=== PATIENT | female | born 1965 | race Caucasian/White ===

== ENCOUNTER 2023-09-24 18:21 | Emergency (ER) | payer MEDICARE, MEDICAID, SELFPAY ==
[2023-09-24 18:23] VITALS: BP 116/75; PULSE 116; RESP 16; TEMP 36.6; O2SAT 97
== END 2023-09-24 18:30 | disposition left against medical advice (07) ==
LOC: ANHED 20:05
DX: R22.43 Localized swelling, mass and lump, lower limb, bilateral (principal)
CPT/HCPCS: 99199

== ENCOUNTER 2023-09-25 12:03 | Emergency (ER) | payer MEDICARE, MEDICAID, SELFPAY ==
[2023-09-25] VITALS (16 sets, daily range): BP systolic 109–137; BP diastolic 65–100; PULSE 106–120; RESP 16–27; TEMP 36.6; O2SAT 94–98
--- NOTE | ~2023-09-25 | XR_ITS ---
EXAMINATION: XR chest 2V DATE: 09/25/2023 12:33 INDICATION: Chest pain and shortness of breath TECHNIQUE: Frontal and lateral views of the chest are obtained COMPARISON: None available FINDINGS: There are minimal airspace opacities of the left lung base. No pleural effusion or pneumoth orax. The cardiomediastinal silhouette is normal. There is moderate thoracic spondylosis. IMPRESSION: 1. Minimal left basilar airspace opacity, consistent with atelectasis versus pneumonia. Reviewed, dictated and finalized at location B. H CLUB AGENT IMPRESSION: 1. Minimal left basilar airspace opacity, consistent with atelectasis versus pn eumonia.
--- NOTE | ~2023-09-25 | US_ITS ---
EXAMINATION: US venous doppler [facility] DATE: 09/25/2023 14:01 INDICATION: Lower limb pain and swelling TECHNIQUE: Grayscale ultrasound images without and with compression and Doppler ultrasound images of the bilateral lower extremity veins were obtained. COMPARISON: None. FINDINGS: The visualized portions of right common femoral vein, profunda (deep) femoral vein, femoral vein, pop liteal vein, posterior tibial veins, peroneal veins, gastrocnemius vein and greater saphenous vein ou tflow are patent. The visualized portions of left common femoral vein, profunda femoral vein, femoral vein, popliteal v ein, posterior tibial veins, peroneal veins, gastrocnemius vein and greater saphenous vein outflow ar e patent. IMPRESSION: 1. No deep venous thrombosis in either lower limb. Reviewed, dictated and finalized at location A. RVISOR FISHING
--- NOTE | 2023-09-25 12:05 | ECG_ITS ---
Measurements Intervals [place] Rate: 110 P: 62 NC: 144 QRS: 70 QRSD: 89 T: 60 QT: 325 QTc: 441 Interpretive Statements SINUS TACHYCARDIA BORDERLINE ECG NO PREVIOUS ECG AVAILABLE FOR COMPARISON Electronically Signed On 09-25-2023 16:28:21 AMBULATORY SERVICE REPRESENTATIVE by Castillo Ruelas M.D.
[2023-09-25 12:26] LABS: Basophils Absolute Auto 0.1 K/mm3 (0.0-0.1); Basophils Percent Auto 0.8 % (0.2-1.2); Eosinophils Absolute Auto 0.7 K/mm3 (0-0.3); Eosinophils Percent Auto 6.5 % (0-4.4); Hematocrit 34.4 % (37.0-47.0); Hemoglobin 10.8 g/dL (12.0-15.0); Immature Granulocyte Percent A 1.9 % (0-0.5); Lymphocytes Absolute Auto 2.19 K/mm3 (0.9-3.2); Lymphocytes Percent Auto 20.3 % (18.3-44.2); Mean Corpuscular HGB Conc 31.4 g/dl (32-36); Mean Corpuscular Hemoglobin 30.9 pg (26-34); Mean Corpuscular Volume 98.3 fl (80-100); Mean Platelet Volume 8.6 fl (7.4-10.4); Monocytes Absolute Auto 0.7 K/mm3 (0.1-0.6); Monocytes Percent Auto 6.2 % (2.6-8.5); Neutrophils Percent Auto 64.3 % (45.5-73.1); Platelet Count Result 457 k/mm3 (150-375); Red Cell Distribution Width 13.1 % (11.5-14.5); White Blood Count 10.8 K/mm3 (4.5-10.0)
[2023-09-25 12:34] LABS: Alanine Aminotransferase 86 U/L (6-35); Alkaline Phosphatase 99 U/L (38-126); Anion Gap 4 mmol/L (8-16); Aspartate Amino Transferase 42 U/L (14-36); Bilirubin,Total 0.3 mg/dL (0.2-1.3); Blood Urea Nitrogen 16 mg/dL (7-17); Calcium 9.2 mg/dL (8.4-10.2); Carbon Dioxide 33 mmol/L (22-30); Chloride 102 mmol/L (98-107); Estimated CRCL calculation 77 ml/min; Estimated Glomerular Filt Rate > 60; Glucose 163 mg/dL (65-110); Lipase 60 U/L (23-300); Potassium 3.4 mmol/L (3.4-5.0); Sodium 139 mmol/L (137-145)
[2023-09-25 12:45] LABS: INR 0.9; Prothrombin Time 12.5 Seconds (11.1-14.7)
[2023-09-25 12:46] LABS: Partial Thromboplastin Time 25.5 SECONDS (22.3-36.8)
[2023-09-25 12:47] LABS: NT Pro B Type Natriuretic Pept 136 pg/mL (19.9-100); Troponin I < 0.012 ng/mL (0.000-0.034)
--- NOTE | 2023-09-25 13:25 | ED.CHESTPAIN ---
HPI - Chest Pain General Chief Complaint: Chest Pain Stated Complaint: hank ankle edema/chest pain/SOB Time Seen by Provider: 09/25/23 13:25 History of Present Illness HPI narrative: 58 years old white female came to the emergency room by private car complaining of generalized swelling mainly of the lower extremities bilaterally started immediately after starting blood pressure medication 2 weeks ago. Probably amlodipine. Patient reported the swelling to the hospital at that time and Lasix was added. The swelling is getting worse. Also complaining of shortness of breath and intermittent chest pain. Patient was hospitalized at [facility] , discharged 2 weeks ago for agitation. History of depression, does not smoke or drink, he uses marijuana almost daily, history of chronic regional pain syndrome, royer syndrome Related Data Home Medications Medication Instructions Recorded Confirmed amlodipine 10 mg tablet mg 09/25/23 09/25/23 baclofen 10 mg tablet mg 09/25/23 cyclobenzaprine 10 mg tablet mg 09/25/23 gabapentin 300 mg capsule mg 09/25/23 gabapentin 800 mg tablet mg 09/25/23 hydrochlorothiazide 12.5 mg capsule mg 09/25/23 mirtazapine 30 mg tablet mg 09/25/23 olanzapine 20 mg tablet mg 09/25/23 paroxetine HCl 30 mg tablet mg PO 09/25/23 Allergies Allergy/AdvReac Type Severity Reaction Status Date / Time No Known Allergies Allergy Unverified 09/17/23 12:40 Review of Systems Review of Systems: All systems reviewed & are unremarkable except as noted in HPI and below Exam Narrative: General appearance: Well-developed, well-nourished Skin: Normal color, 2+ edema foot, ankles up to the mid calf bilaterally few scattered blisters and dorsal side of the right foot Head: Normocephalic, nontraumatic Eyes: Clear conjunctiva ENT: Oropharynx normal, ears normal, nose normal Neck: Supple, nontender Chest and respiratory: Airway patent, no respiratory distress, no accessory muscle use Heart: Regular rate/rhythm Abdomen: Soft, nontender, no organomegaly, quiet bowel sounds Vascular: Normal peripheral pulses, normal capillary refill. Musculoskeletal: Normal range of motion, nontender back Neurologic: Alert and oriented ?3, DIVISION OPERATIONS MANAGER is normal as tested, no gross motor deficit Course Vital Signs Vital signs: Vital Signs Temperature 36.6 C 09/25/23 12:09 Pulse Rate 110 H 09/25/23 12:09 Respiratory Rate 20 09/25/23 12:09 Blood Pressure 130/65 09/25/23 12:09 Pulse Oximetry 95 09/25/23 12:09 Temperature 36.6 C 09/25/23 12:09 Pulse Rate 108 H 09/25/23 14:01 Respiratory Rate 16 09/25/23 14:01 Blood Pressure 129/76 09/25/23 14:01 Pulse Oximetry 97 09/25/23 14:01 MDM - Chest Pain MDM Narrative Medical decision making narrative: Patient presents with leg edema bilaterally started immediately after started amlodipine 2 weeks ago for hypertension. Later patient started on hydrochlorothiazide to for leg edema, without improvement. Differential diagnosis, congestive heart failure, deep vein thrombosis, dependent edema, check calcium channel arlin side effect. Blood workup today showed insignificant abnormalities Chest x-ray showed no acute abnormality, venous Doppler bed lower extremity bilateral showed no deep vein thrombosis, EKG on arrival shows sinus tachycardia Patient does not have coronary artery risk factors. Amlodipine is my concern the underlying cause of patient edema, my plan to stop amlodipine and to start patient on losartan/hydrochlorothiazide, keep leg elevated, compression stocking. Differential Diagnosis Differential diagnosis: Likely other (As above) Lab Data
[2023-09-25 13:53] LABS: Alveolar/Arterial O2 Gradient 23.8 mmHg; Base Excess ABG 1.7 mEq/l (+/-2.0); Fractional Inspired Oxygen 21 %; HCO3 ABG 25.8 mEq/l (22.0-26.0); Oxygen Content ABG 15.3 %vol (16.0-22.0); Oxygen Saturation ABG 96.2 % (95.0-100.0); Oxyhemoglobin 94.7 % THb (90.0-100.0); PCO2 ABG 38.6 mmHg (35.0-45.0); PO2 ABG 79.7 mmHg (80.0-100.0); Total Hemoglobin 11.4 g/dL (12.0-18.0); pH ABG 7.443 (7.350-7.450)
[2023-09-25 13:54] LABS: Site Drawn RIGHT BRACHIAL
[2023-09-25] MEDS: ASPIRIN 81 MG CHEWABLE TABLET 324 MG PO (14:33)
[2023-09-25 15:21] LABS: Troponin I < 0.012 ng/mL (0.000-0.034)
[2023-09-25 15:22] LABS: D Dimer 0.76 ug/mL (<0.48)
== END 2023-09-25 15:26 | disposition home or self-care (01) ==
PROVIDERS: Emergency Medicine; Emergency Provider Emergency Medicine
DX: R07.89 Other chest pain (principal); R60.0 Localized edema; R00.0 Tachycardia, unspecified; R06.02 Shortness of breath
CPT/HCPCS: 36415; 36600; 71046; 80053; 82805; 83690; 83880; 84484; 85025; 85380; 85610; 85730; 93005; 93970; 99284; A9270

== ENCOUNTER 2023-10-03 13:41 | Emergency (ER) | payer MEDICARE, MEDICAID, SELFPAY ==
--- NOTE | ~2023-10-03 | CT_ITS ---
EXAMINATION: CTA chest PE protocol DATE: 10/03/2023 16:23 INDICATION: Shortness of breath TECHNIQUE: Computed tomography angiography (CTA) of the chest was performed with 100 mL Omnipaque-350 intravenous contrast timed to evaluate the pulmonary arteries. Coronal maximum intensity projection 3D-reconstructions were created by the technologist. The dose-length product (DLP) was 387.68 mGy-cm. Automated exposure control and iterative reconstruction technique were employed. COMPARISON: None. FINDINGS: The pulmonary arteries are well-opacified. No pulmonary embolism is identified. There is mi ld dependent atelectasis of the lung bases. No pleural effusion or pneumothorax. No pathologically en larged thoracic lymph nodes are identified. The heart size is normal. There is moderate thoracic spon dylosis. IMPRESSION: 1. No pulmonary embolism. Mild atelectasis of the lung bases. Reviewed, dictated and finalized at location F. GE BUFFER
--- NOTE | ~2023-10-03 | US_ITS ---
EXAMINATION: US venous doppler [facility] DATE: 10/03/2023 15:31 INDICATION: Right lower limb pain TECHNIQUE: Doran scale images without and with compression and Doppler images of the right lower extre mity veins were obtained. COMPARISON: 09/25/2023 FINDINGS: The right common femoral vein, profunda femoral vein, femoral vein, popliteal vein, peronea l trunk, posterior tibial veins, and greater saphenous vein are patent. IMPRESSION: 1. Patent right lower extremity veins. No evidence of deep venous thrombosis. Reviewed, dictated and finalized at location F. HER EDUCATION INSTRUCTOR
[2023-10-03 14:10] VITALS: BP 119/80; PULSE 106; RESP 16; TEMP 36.3; O2SAT 97
[2023-10-03 15:00] VITALS: BP 123/81; PULSE 97; RESP 16; TEMP 36.7; O2SAT 100
[2023-10-03 15:17] LABS: Basophils Absolute Auto 0.1 K/mm3 (0.0-0.1); Basophils Percent Auto 1.3 % (0.2-1.2); Eosinophils Absolute Auto 0.6 K/mm3 (0-0.3); Eosinophils Percent Auto 6.5 % (0-4.4); Hematocrit 37.3 % (37.0-47.0); Hemoglobin 11.7 g/dL (12.0-15.0); Immature Granulocyte Absolute 0.14 K/mm3 (0.00-0.031); Immature Granulocyte Percent A 1.6 % (0-0.5); Lymphocytes Absolute Auto 2.11 K/mm3 (0.9-3.2); Lymphocytes Percent Auto 24.6 % (18.3-44.2); Mean Corpuscular HGB Conc 31.4 g/dl (32-36); Mean Corpuscular Hemoglobin 30.6 pg (26-34); Mean Corpuscular Volume 97.6 fl (80-100); Mean Platelet Volume 8.6 fl (7.4-10.4); Monocytes Absolute Auto 0.6 K/mm3 (0.1-0.6); Monocytes Percent Auto 6.8 % (2.6-8.5); Neutrophils Absolute Auto 5.1 K/mm3 (1.3-6.7); Neutrophils Percent Auto 59.2 % (45.5-73.1); Platelet Count Result 476 k/mm3 (150-375); Red Blood Count 3.82 M/mm3 (4.2-5.4); Red Cell Distribution Width 13.4 % (11.5-14.5); White Blood Count 8.6 K/mm3 (4.5-10.0)
[2023-10-03 15:29] LABS: Alanine Aminotransferase 57 U/L (6-35); Albumin Level 4.4 g/dL (3.5-5.1); Alkaline Phosphatase 98 U/L (38-126); Anion Gap 10 mmol/L (8-16); Aspartate Amino Transferase 36 U/L (14-36); Bilirubin,Total 0.4 mg/dL (0.2-1.3); Blood Urea Nitrogen 17 mg/dL (7-17); Calcium 9.4 mg/dL (8.4-10.2); Carbon Dioxide 23 mmol/L (22-30); Chloride 105 mmol/L (98-107); Estimated CRCL calculation 76 ml/min; Estimated Glomerular Filt Rate > 60; Glucose 149 mg/dL (65-110); INR 0.9; Potassium 3.8 mmol/L (3.4-5.0); Prothrombin Time 11.9 Seconds (11.1-14.7); Sodium 138 mmol/L (137-145)
[2023-10-03 16:00] VITALS: BP 123/75; PULSE 95; RESP 16; TEMP 36.5; O2SAT 98
[2023-10-03 17:00] VITALS: BP 122/85; PULSE 95; RESP 16; TEMP 36.7; O2SAT 98
--- NOTE | 2023-10-03 17:09 | ED.EXTPRO ---
HPI - Extremity Problem General Chief complaint: Extremity Problem,Nontraumatic Stated complaint: bilateral leg swelling/elevated BP Time Seen by Provider: 10/03/23 14:37 History of Present Illness HPI Narrative: This is a 58-year-old female, with history of hypertension, seen in this emergency department 8 days ago, who returns complaining of persistent right calf pain. Patient states despite changing her medications, she continues to have swelling in the bilateral lower extremities, though now worse on the right compared to the left. She complains of 6 to 7/10 dull and cramping right calf pain, aggravated by direct palpation. She also complains of mild shortness of breath but denies chest pain or loss of consciousness. She has no other complaints at this time. Related Data Home Medications Medication Instructions Recorded Confirmed amlodipine 10 mg tablet mg 09/25/23 09/25/23 baclofen 10 mg tablet mg 09/25/23 cyclobenzaprine 10 mg tablet mg 09/25/23 gabapentin 300 mg capsule mg 09/25/23 gabapentin 800 mg tablet mg 09/25/23 hydrochlorothiazide 12.5 mg capsule mg 09/25/23 mirtazapine 30 mg tablet mg 09/25/23 olanzapine 20 mg tablet mg 09/25/23 paroxetine HCl 30 mg tablet mg PO 09/25/23 Allergies Allergy/AdvReac Type Severity Reaction Status Date / Time No Known Allergies Allergy Unverified 09/17/23 12:40 Review of Systems Review of Systems: CONSTITUTIONAL: Denies fever, chills, or sweats. CARDIOVASCULAR: Bilateral lower extremity edema denies chest pain, palpitations, RESPIRATORY: Intermittent mild dyspnea denies cough GASTROINTESTINAL: Denies abdominal pain, nausea, vomiting, or diarrhea. GENITOURINARY: Denies dysuria or hematuria. SKIN: Denies rash or itching. MUSCULOSKELETAL: Right calf pain denies back pain, joint pain, or myalgia. NEUROLOGIC: Denies headache, numbness, dizziness, or weakness. PSYCHIATRIC: Denies anxiety or depression. [facility] Past Medical History Medical History Hypertension Surgical History Surgical History No significant past surgical history Social History Social History Smoking status: Never smoker Alcohol intake: never Substance use: never Exam Narrative: GENERAL: Well-developed, well-nourished, and in no acute distress. HEAD: Normocephalic, atraumatic. EYES: PERRLA and EOMI. NECK: Supple. No carotid bruits or JVD CHEST: Clear to auscultation. No respiratory distress. No wheezes rales or rhonchi HEART: Regular rate and rhythm. No murmur heard. Normal peripheral pulses. ABDOMEN: Soft, nontender, nondistended, normal active bowel sounds. EXTREMITIES: Bilateral lower extremity edema, trace on the left and 1+ on the right. The right posterior calf is tender palpation without mass, erythema, induration or ecchymosis. Normal range of motion. SKIN: Warm, dry, no rash. NEURO: Alert and oriented x3. No focal deficit. Moving all 4 limbs spontaneously PSYCH: Normal mood and affect. Course Course Emergency Course: 17:12 - Ultrasound of the right lower extremity negative for DVT. CT chest PE study negative for PE or other acute cardiopulmonary process. CBC demonstrates mild anemia with hemoglobin of 11.7 but is otherwise unremarkable. Chemistries unremarkable. INR within normal limits. I suspect the patient's symptoms are related to muscle spasm and skin changes related to lower extremity edema. I repeated the recommendations given to her during her last visit (elevation of the bilateral lower extremities, use of losartan-hydrochlorothiazide and use of compression stockings) in addition to lidocaine patches and muscle relaxers. I discussed the findings and recommendations with the patient. Discussed return and emergency precautions including signs/symptoms of septic arthritis and neurovascular compromise.
[2023-10-03] MEDS: CYCLOBENZAPRINE HCL 5 MG TABLET PO (17:10)
[2023-10-03] MEDS: ACETAMINOPHEN 500 MG TABLET 1000 MG PO (17:10)
[2023-10-03 17:22] VITALS: BP 130/74; PULSE 82; RESP 16; O2SAT 99
== END 2023-10-03 17:23 | disposition home or self-care (01) ==
PROVIDERS: Emergency Provider Preventive Medicine Aerospace Medicine
DX: M79.661 Pain in right lower leg (principal); R60.0 Localized edema; M62.831 Muscle spasm of calf; I10 Essential (primary) hypertension
CPT/HCPCS: 36415; 71275; 80053; 85025; 85610; 93971; 99284; A9270; Q9967

== ENCOUNTER 2023-11-07 11:59 | Outpatient (CLI) | payer MEDICARE, MEDICAID, SELFPAY ==
[2023-11-07 18:08] LABS: Hematocrit 38.5 % (37.0-47.0); Hemoglobin 11.7 g/dL (12.0-15.0); Mean Corpuscular HGB Conc 30.4 g/dl (32-36); Mean Corpuscular Hemoglobin 30.2 pg (26-34); Mean Corpuscular Volume 99.5 fl (80-100); Platelet Count Result 460 k/mm3 (150-375); Red Blood Count 3.87 M/mm3 (4.2-5.4); Red Cell Distribution Width 13.3 % (11.5-14.5)
[2023-11-07 18:18] LABS: Alanine Aminotransferase 27 U/L (6-35); Albumin Level 4.6 g/dL (3.5-5.1); Alkaline Phosphatase 93 U/L (38-126); Anion Gap 8 mmol/L (4-12); Aspartate Amino Transferase 40 U/L (14-36); Bilirubin,Total 0.4 mg/dL (0.2-1.3); Blood Urea Nitrogen 20 mg/dL (7-17); Calcium 10.3 mg/dL (8.4-10.2); Carbon Dioxide 29 mmol/L (22-30); Chloride 102 mmol/L (98-107); Cholesterol 284 mg/dL (0-200); Estimated Glomerular Filt Rate 57; Glucose 109 mg/dL (65-110); HDL Direct 54 mg/dL; Potassium 3.5 mmol/L (3.4-5.0); Sodium 139 mmol/L (137-145); Triglycerides 329 mg/dL (<150)
[2023-11-07 18:41] LABS: LDL Cholesterol Direct 165 mg/dL
[2023-11-07 18:53] LABS: Thyroid Stimulating Hormone < 0.015 uIU/mL (0.465-4.680)
[2023-11-07 19:22] LABS: Iron 68 ug/dL (37-170)
[2023-11-07 19:30] LABS: Folic Acid > 20.0 ng/mL (2.76->20)
[2023-11-07 19:37] LABS: Percent Iron Saturation 17 % (20-50)
[2023-11-07 20:28] LABS: Vitamin D 25 Hydroxy 19.4 ng/mL
[2023-11-08 00:15] LABS: Hemoglobin A1C 5.4 % (<5.7)
[2023-11-11 11:03] LABS: Amphetamines NEGATIVE ng/mL (<500); Barbiturates NEGATIVE ng/mL (<300); Benzodiazepines NEGATIVE ng/mL (<100); Cocaine Metabolite NEGATIVE ng/mL (<100); Marijuana Metabolite 340 ng/mL (<5); Methadone Metabolite NEGATIVE ng/mL (<100); Opiates NEGATIVE ng/mL (<100); Oxidant NEGATIVE mcg/mL (<200); pH 5.7 (4.5-9.0)
== END 2023-11-07 12:00 | disposition home or self-care (01) ==
LOC: ANHBWCLAB 12:02
PROVIDERS: Visit Provider Nurse Practitioner Adult Health
DX: R60.0 Localized edema (principal); Z13.9 Encounter for screening, unspecified; D64.9 Anemia, unspecified; E66.9 Obesity, unspecified; I10 Essential (primary) hypertension; R53.83 Other fatigue; Z79.899 Other long term (current) drug therapy
CPT/HCPCS: 36415; 80053; 80061; 80299; 82306; 82607; 82728; 82746; 83036; 83540; 83550; 84443; 85027

== ENCOUNTER 2024-01-06 14:29 | Outpatient (CLI) | payer MEDICARE, MEDICAID, SELFPAY ==
--- NOTE | ~2024-01-06 | MR_ITS ---
MRI of the thoracic spine Clinical History: Radiculopathy Technique: Axial T2-weighted and gradient images, and sagittal T1-weighted, T2-weighted, and STIR diego ges were acquired. Findings: There is no fracture or subluxation of the thoracic spine. Vertebral bodies maintain normal height and alignment. There are scattered mild degenerative disc changes particularly the mid to low er thoracic spine. No suspicious bone marrow signal abnormality seen. No significant disc bulge or herniation seen at any thoracic level. No spinal canal stenosis or cord compression present. There is mild facet arthropathy at T11-T12 and T12-L1. There is right neural for aminal narrowing at T10-T11 and T11-T12. There is probable left neural foraminal narrowing at T10-T11 . No abnormal signal seen in the spinal cord. No epidural mass or collection seen. Paravertebral soft t issues are unremarkable. Impression: Mild degenerative spondylosis, as above. Probable right neural foraminal narrowing at T10-T11 and T11 -T12, and mild left neural foraminal narrowing at T10-T11. Reviewed, dictated and finalized at [facility]. Impression: Mild degenerative spondylosis, as above. Probable right neural foraminal narrow ing at T10-T11 and T11-T12, and mild left neural foraminal narrowing at T10-T11 .
== END 2024-01-06 14:30 | disposition home or self-care (01) ==
PROVIDERS: Visit Provider Anesthesiology
DX: M47.894 Other spondylosis, thoracic region (principal); M48.04 Spinal stenosis, thoracic region
CPT/HCPCS: 72146

== ENCOUNTER 2024-02-27 09:02 | Day surgery (SDC) | payer MEDICARE, MEDICAID, SELFPAY ==
[2024-02-14 08:41] VITALS: BMI 29.9
[2024-02-14 12:21] VITALS: BMI 29.3
[2024-02-27 10:30] VITALS: BP 130/89; PULSE 87; RESP 16; TEMP 37.4; O2SAT 97; BMI 29.9
--- NOTE | 2024-02-27 10:32 | PM.HPGS ---
History of Present Illness History of Present Illness Consent: Risks, benefits, and alternatives have been discussed and questions answered. Patient agrees to proceed with procedure. Chief complaint: Neoplasm screening Narrative: Enrique Sloan is a 59 year old female referred for screening colonoscopy. Patient's current weight appetite and bowel movements are normal. Patient denies abdominal pain. She has had no bleeding. Family history is noncontributory. Review of Systems Review of Systems: All systems reviewed & are unremarkable except as noted in HPI and below PMFSH Past Medical History Medical History (Updated 02/10/24 @ 14:00 by Marilynn Reyes DO) Allergies Anxiety Arthritis Asthma Colitis CRPS (complex regional pain syndrome type I) EDS (Precious-Danlos syndrome) GERD (gastroesophageal reflux disease) Headache Hyperlipidemia Hypertension IBS (irritable bowel syndrome) Osteoporosis Seizures Surgical History Surgical History H/O section No significant past surgical history Family History Family History (Updated 02/10/24 @ 13:17 by Nadiya Betancourt) Father Asthma Lung cancer Depression Hypertension Mother Asthma Breast cancer Depression Hypertension Heart disease Diabetes mellitus Thyroid disorder Sibling Alcoholism Thyroid disorder Asthma Grandparent Diabetes mellitus Social History Social History (Updated 02/10/24 @ 13:18 by Nadiya Betancourt) Smoking status: Current every day smoker Tobacco type: cigarettes and e-cigarettes/vaping Alcohol intake: former Substance use: current Substance use type: marijuana Other substance usage details: edibles Last use: 3X monthly Living arrangements: with family Spiritual care concerns: No Meds Home Medications and Allergies Home Medications Medication Instructions Recorded Confirmed Type biotin 1 mg capsule 1 mg PO DAILY 11/07/23 02/27/24 History multivitamin 1 tablet PO DAILY 11/07/23 02/27/24 History albuterol sulfate 90 mcg/actuation 2 puff inhalation Q4H PRN 02/10/24 02/27/24 Rx aerosol inhaler shortness of breath or wheezing #8.5 grams fluoxetine 20 mg capsule 20 mg PO DAILY 02/10/24 02/27/24 History olanzapine 10 mg-samidorphan 10 mg 1 tablet PO DAILY 02/10/24 02/27/24 History tablet (Lybalvi) pravastatin 10 mg tablet 10 mg PO DAILY #90 tabs 02/10/24 02/27/24 Rx trazodone 100 mg tablet 100 mg PO BID 02/10/24 02/27/24 History vitamin E (dl, acetate) 90 mg (200 90 mg PO DAILY 02/10/24 02/27/24 History unit) capsule diphenhydramine HCl 25 mg tablet 25 mg PO DAILY 02/14/24 02/27/24 History venlafaxine 75 mg capsule,extended 75 mg PO DAILY 02/14/24 02/27/24 History release 24 hr Allergies Allergy/AdvReac Type Severity Reaction Status Date / Time No Known Allergies Allergy Verified 02/27/24 10:17 Vital Signs Vital Signs - 24 hr 02/27/24 10:30 Temperature 99.4 F Pulse Rate 87 Respiratory Rate 16 Blood Pressure 130/89 Pulse Oximetry 97 Oxygen Delivery Room Air Exam Narrative: Physical exam reveals patient to be alert. Vital signs stable. HEENT exam is unremarkable. Patient is anicteric. Lungs are clear to auscultation and percussion without murmur or extra sounds. Abdominal exam bowel sounds are present soft nontender with no hepatosplenomegaly. Digital external rectal exam is normal. Assessment and Plan Assessment and plan (1) Screening for colon cancer: Code(s): Z12.11 - Encounter for screening for malignant neoplasm of colon Status: Acute Assessment and Plan: Patient presents today for neoplasia screening colonoscopy. Further recommendations may be given after endoscopy.
[2024-02-27] MEDS: LACTATED RINGERS 1,000 ML 150 ML IV CONT (10:42)
--- NOTE | 2024-02-27 10:52 | WPDANESEPPF ---
Anes - Initial Pre Proc Eval Procedure: Operation Date: 02/27/24 11:00 Proposed Procedures p Screening Colonoscopy - Lemuel Dodd MD Date/Time: 02/27/24 10:52 Surgeon: Lemuel Dodd MD Pre Op Diagnosis: Neoplasm screening Patient Data Age: 59 Gender: F Height: 1.63 m Weight: 79 kg Last Vital Signs Temp 37.4 C 02/27/24 10:30 Pulse 87 02/27/24 10:30 Resp 16 02/27/24 10:30 BP 130/89 02/27/24 10:30 Pulse Ox 97 02/27/24 10:30 O2 Del Method Room Air 02/27/24 10:30 Allergies Allergy/AdvReac Type Severity Reaction Status Date / Time No Known Allergies Allergy Verified 02/27/24 10:17 Home Medications Medication Instructions Recorded Confirmed Type biotin 1 mg capsule 1 mg PO DAILY 11/07/23 02/27/24 History multivitamin 1 tablet PO DAILY 11/07/23 02/27/24 History albuterol sulfate 90 mcg/actuation 2 puff inhalation Q4H PRN 02/10/24 02/27/24 Rx aerosol inhaler shortness of breath or wheezing #8.5 grams fluoxetine 20 mg capsule 20 mg PO DAILY 02/10/24 02/27/24 History olanzapine 10 mg-samidorphan 10 mg 1 tablet PO DAILY 02/10/24 02/27/24 History tablet (Lybalvi) pravastatin 10 mg tablet 10 mg PO DAILY #90 tabs 02/10/24 02/27/24 Rx trazodone 100 mg tablet 100 mg PO BID 02/10/24 02/27/24 History vitamin E (dl, acetate) 90 mg (200 90 mg PO DAILY 02/10/24 02/27/24 History unit) capsule diphenhydramine HCl 25 mg tablet 25 mg PO DAILY 02/14/24 02/27/24 History venlafaxine 75 mg capsule,extended 75 mg PO DAILY 02/14/24 02/27/24 History release 24 hr Patient hx anesthesia problems: none Family hx anesthesia problems: none Results Review: All pre-operative results and documents have been reviewed as part of the pre-operative evaluation. [facility] Past Medical History Medical History Allergies Anxiety Arthritis Asthma Colitis CRPS (complex regional pain syndrome type I) EDS (Precious-Danlos syndrome) GERD (gastroesophageal reflux disease) Headache Hyperlipidemia Hypertension IBS (irritable bowel syndrome) Osteoporosis Seizures Surgical History Surgical History H/O section No significant past surgical history Family History Family History Father Asthma Lung cancer Depression Hypertension Mother Asthma Breast cancer Depression Hypertension Heart disease Diabetes mellitus Thyroid disorder Sibling Alcoholism Thyroid disorder Asthma Grandparent Diabetes mellitus Social History Social History Smoking status: Current every day smoker Tobacco type: cigarettes and e-cigarettes/vaping Alcohol intake: former Substance use: current Substance use type: marijuana Other substance usage details: edibles Last use: 3X monthly Living arrangements: with family Spiritual care concerns: No Anes - Eval Final PreProcedure Day of Procedure 02/27/24 10:52 Patient weight: overweight Heart: regular rate and rhythm Lungs: clear to auscultation Airway: Mallampati scale class II Neurological: alert and oriented Last oral intake: >/= 8 hours ASA classification: III Emergent: no Anesthetic plan: proceed Anesthesia type and monitoring: general GIVS and standard monitoring Results Review: All pre-operative results and documents have been reviewed as part of the pre-operative evaluation. Informed Consent: The patient's anesthetic plan and its attendant risks and benefits were discussed with the patient/family/POA. Questions were solicited and answers provided to the satisfaction of the patient/family/POA.
[2024-02-27 11:13] VITALS: BP 107/72; PULSE 78; RESP 14; O2SAT 95
--- NOTE | 2024-02-27 11:18 | WPDANESPN ---
Anes - Prog Note Post-Op Date/Time: 02/27/24 11:18 Cardiovascular status: normal Respiratory status: normal Airway patency: baseline Mental status: baseline Post-Op hydration status: normal Vital Signs: Last Vital Signs Temp 37.4 C 02/27/24 10:30 Pulse 78 02/27/24 11:13 Resp 14 02/27/24 11:13 BP 107/72 02/27/24 11:13 Pulse Ox 95 02/27/24 11:13 O2 Del Method Room Air 02/27/24 11:13 Pain Score (VAS): 0/10 I/O: Intake & Output 02/26/24 02/27/24 02/27/24 23:59 07:59 15:59 Intake Total 300 Balance 300 Patient Feedback: Patient satisfied with anesthetic care.
[2024-02-27 11:23] VITALS: BP 101/75; PULSE 82; RESP 16; O2SAT 98
[2024-02-27 11:33] VITALS: BP 103/68; PULSE 75; RESP 20; O2SAT 99
== END 2024-02-27 11:38 | disposition home or self-care (01) ==
PROVIDERS: PCP Family Medicine; Visit Provider Internal Medicine Gastroenterology
PROC: 0DJD8ZZ Inspection of Lower Intestinal Tract, Via Natural or Artificial Opening Endoscopic (ICD-10-PCS; CPT 45378; principal; 2024-02-27 11:00)
DX: Z12.11 Encounter for screening for malignant neoplasm of colon (principal)
CPT/HCPCS: 45378

== ENCOUNTER 2024-08-13 13:03 | Outpatient (CLI) | payer MEDICARE, MEDICAID, SELFPAY ==
--- NOTE | ~2024-08-13 | MR_ITS ---
EXAMINATION: MR lumbar spine wo con DATE: 08/13/2024 13:42 INDICATION: Dyspnea degeneration, lumbar region. TECHNIQUE: Magnetic resonance imaging (MRI) of the lumbar spine was performed without intravenous con trast. Sequences included sagittal T2-weighted FSE, sagittal T2-weighted FS FSE, sagittal T1-weighted FSE, and axial T2-weighted FSE. COMPARISON: None FINDINGS: There is 6 degrees dextrocurvature of lumbar spine. Vertebral body heights are normal. Inte rvertebral disc heights are normal. The distal spinal cord signal intensity is normal. The conus medu llaris is at L1. There is a 4 mm cyst in left kidney. The following disc levels are specifically disc ussed: L1-L2: There is a right central extrusion. There is no facet joint osteoarthritis. There is no neural foraminal stenosis. There is mild central canal stenosis. L2-L3: The disc does not extend beyond the endplate margin. There is mild right facet joint osteoarth ritis. There is no neural foraminal stenosis. There is no central canal stenosis. L3-L4: The disc does not extend beyond the endplate margin. There is severe right and mild left facet joint osteoarthritis. There is no neural foraminal stenosis. There is no central canal stenosis. L4-L5: The disc is bulging. There is mild right and severe left facet joint osteoarthritis. There is mild bilateral neural foraminal stenosis. There is no central canal stenosis. L5-S1: There is a right central protrusion. There is severe right and moderate left facet joint osteo arthritis. There is mild bilateral neural foraminal stenosis. There is mild central canal stenosis. IMPRESSION: 1. Mild lumbar spondylosis. Reviewed, dictated and finalized at location A. ULTANT INTERN IMPRESSION: 1. Mild lumbar spondylosis.
== END 2024-08-13 13:04 | disposition home or self-care (01) ==
PROVIDERS: PCP Family Medicine; Visit Provider Anesthesiology
DX: M51.362 Other intervertebral disc degeneration, lumbar region with discogenic back pain and lower extremity pain (principal); M47.896 Other spondylosis, lumbar region
CPT/HCPCS: 72148

== ENCOUNTER 2024-12-09 09:42 | Outpatient (CLI) | payer MEDICARE, MEDICAID, SELFPAY ==
--- OUTSIDE RECORDS SUMMARY | 2024-12-09 10:17 | XMS_ITS | Encounter Summary ---
Author Organization [facility] Address [address] [place] [address] Care Team Providers Care Forestry Patrolman Name Role Phone Nilo Elaine MD Primary Care Provider [phone] Patsy Mclaughlin APRN Primary Care Provider [phone]- [phone] Maite Goodwin MD Primary Care Provider [phone] Encounter Details Date Type Department Care Team (Late st Contact Info) Description 01/30/2023 MyChart Message Enc [facility] [address] [place] [address] [facility], [facility] Provider Air Quality Message Social History Tobacco Use Types Packs/Day Years Used Date Smoking Tobacco: Former Cigarettes 0.5 15 0 08/08/2003 - 08/08/2018 Smokeless Tobacco: Current Comments:Quit smoking vapes Alcohol Use Standard Drinks/Week Comments Never 0 (1 standard drink = 0.6 oz pur e alcohol) AUDIT-C Answer Date Recorded Frequency of Alcohol Consumption Never 08/12/2018 Average Number of Drinks Not on file 019 Frequency of Binge Drinking Not on file 03/2019 PHQ-2 Answer Date Recorded Patient Health Questionnaire-2 Score 0 09/07/2022 Comments No Sex and Gender Information Value Date Recorded Sex Assigned at Female 09/20/2022 9:43 AM ENGRAVER [employer] Legal Sex Female 8:04 PM CDT Gender Identity Female 09/20/2022 9:43 AM [employer] Sexual Orientation Straight 09/20/2022 9: 43 AM ENGRA[employer] documented as of this encounter Plan of Treatment Not on file documented as of this encounter Visit Diagnoses Not on filedocumented in this encounter Additional Health Concerns Infection Onset Date Last Indicated Resolved Time COVID-19 Rule Out 08/31/2023 08/31/2023 08/31/2023 2:45 AM [employer]RAVER [employer] Assessment Noted Time PHQ-9 Depression Total Score: 6 08/28/19 2:36 PM ENGRAVER [employer] documented as of this encounter Care Teams Forestry Patrolman Relationship Specialty [place] [id number] [place] [address] PCP - General FAMILY PRACTICE 11/15/22 02/24/23 Patsy Mclaughlin APRN [id number] [place] [address] PCP - General NURSE PRACTITIONER 02/25/23 06/06/23 [place] [id number] [place] [id number] PCP - General FAMILY PRACTICE 06/07/23 documented as of this encounter
--- OUTSIDE RECORDS SUMMARY | 2024-12-09 10:17 | XMS_ITS | Clinical Summary ---
Author Organization [facility] Address [address] [place] [address] Care Team Providers Care Burner Technician Name Role Phone Mckenna Hernández MD Primary Care Provider Source Comments [facility],non-owned Affiliates and Associated Physician Practices is amultiple site organization consisting of ambulatory clinics and hospital sitesin [place], [place], [place] and [place]. This disclosure is being madepursuant to the Care Everywhere program and may not contain all information available regarding this patient. Last updated 18.[facility] Allergies No known active allergies Medications * This document contains information received from the source organization and may not represent a complete record from that organization. * Be aware that medications may not be up to date on this document. Alwaysverify current medications with the patient. hydrocodone-maura taminophen (NORCO) 5-325 mg 5-325 mg half tablet Take by mouth every 4 hours as needed. Active Ibuprofen (ADVIL PO) Take by mouth. Active diclofenac sodium (VOLTAREN) 1 % gel Apply 4 g to affected area 4 times daily. 5 Tube 3 02/15/2014 Active baclofen (LIORESAL) 10 MG tablet Take 10 mg by mouth 3 times daily. May cause drowsiness. Active Active Problems Problem Noted Date Diagnosed Date Back pain Headache Overview (06/12/2015): Family History Medical History Relation Name Comments Cancer - Other Father Cancer - Breast Mother Relation Name Status Comments Brother Alive healthy Father Alive 74 lung cancer Mother Alive 70 breast cance r Sister Alive healthy Social History Tobacco Use Types Packs/Day Years Used Date Smoking Tobacco: Former Smokeless Tobacco: Never Alcohol Use Standard Drinks/Week Comments No 0 (1 standard drink = 0.6 oz pur e alcohol) Comments Unknown Sex and Gender Information Value Date Recorded Sex Assigned at Not on file Legal Sex Female 12:26 AM METER READING CLERK Gender Identity Not on file Sexual Orientation Not on file 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 Not on file Not on file Last Filed Vital Signs Vital Sign Reading Time Taken Comments Blood Pressure 110/78 04/10/2017 8:57 AM CDT Pulse 67 04/10/2017 8:57 AM CDT Temperature 36 C (96.8 F) 04/10/2017 8:57 AM CDT Respiratory Rate 18 04/10/2017 8:57 AM CDT Oxygen Saturation 97% 06/24/2014 1:37 PM METER READING CLERK Inhaled Oxygen Concentration - - Weight 62.6 kg (138 lb) 04/10/2017 8:57 AM CDT Height 165.1 cm (5' 5 ) 04/10/2017 8:57 AM CDT Body Mass Index 22.96 04/10/2017 8:57 AM CDT Plan of Treatment Health Maintenance Due Date Last Done Comments COLOGUARD (AGES 45-75) - COLON CA SCREENING 1966 COLON MONITORING 1966 COLONOSCOPY - COLON CA SCREENING 1966 CT COLONOGRAPHY - COLON CA SCREENING 1966 Colorectal Cancer Screening 1966 FIT - COLON CA SCREENING 1966 FLEX SIG - COLON CA SCREENING 1966 LIPID TESTING 1966 HIV SCREENING 1981 DTAP/TDAP/TD VACCINES (1 - Tdap) 1985 HEPATITIS B VACCINE (1 of 3 - 19+ 3-dose series) 1985 PNEUMOCOCCAL VACCINE 50+ (1 of 1 - PCV) 01/17/2016 ZOSTER VACCINE (1 of 2) 01/17/2016 MAMMOGRAM 11/25/2016 11/25/2014 COVID-19 VACCINE (1 - season) 2024 DEPRESSION SCREENING 08/05/2024 INFLUENZA VACCINE (Season Ended) 2025 05/05/2019, 08/12/2018, 09/05/2016, Additional history exists HEPATITIS C SCREENING Completed 11/23/2015 HIB VACCINE Aged Out No longer eligi ble based on patient's age to complete this topic HPV VACCINE Aged Out No longer eligi ble based on patient's age to complete this topic MENINGOCOCCAL (Group B) VACCINE SHARED DECISION-MAKING Aged Out No longer eligible based on patient's age to complete this topic MENINGOCOCCAL GROUPS A/C/Y/W VACCINE Aged Out No longer eligible based on patient's age to complete this topic Procedures Procedure Name Priority Date/Time Associated Diagnosis Comments HEPATITIS C ANTIBODY Routine 11/23/2015 12:12 PM CDT MAMMO BILAT SCREENING Routine 11/25/2014 9:56 AM CDT from Last 3 Months or Most Recently Relevant to Health Maintenance Results * HEPATITIS C ANTIBODY (11/23/2015 12:12 PM CDT) Hepatitis C Antibody Non-react [facility] Comment: Hepatitis C Antibody screen indicates no serologic evidence of past or current infection with Hepatitis C Virus. Patients with unexplained liver disease who are immunocompromised or suspected of having acute Hepatitis C infection may benefit from Nucleic Acid Test (NATA) for Hepatitis C Viral RNA to confirm Hepatitis C status. Blood specimen (specimen) BLOOD SPECIMEN / Unknown 11/23/2015 12:12 PM CDT 11/23/2015 12:28 PM CDT [facility] - CHEMISTRY ORDERABLES Fi nal Result [address] [phone] * MAMMO BILAT SCREENING (11/25/2014 9:56 AM CDT) Anatomical Region Laterality Modality Breast Bilateral Other Impressions 11/29/2014 9:30 AM CDT IMPRESSION: No mammographic evidence of malignancy. BI-RADS Category 1: Negative. RECOMMENDATION: 1. Return for mammograms in one year or sooner if clinically indicated. 2. Based on the information provided by your patient, she may be at elevated risk for breast cancer (lifetime risk of 20% based on Tyrer-Cuzick model). Formal risk assessment evaluation by a breast surgeon or certified genetic counselor is recommended. These services are provided at [facility] by Dr. Marcela Montenegro or Carol Muñoz RN [facility] . This report was electronically signed by AISHA STILES M.D. on 11/29/2014 9:30 AM . Narrative 11/29/2014 9:30 AM CDT BILATERAL SCREENING MAMMOGRAM DATE: 11/25/2014. COMPARISON: 07/04/2006. HISTORY: Screening mammogram. TECHNIQUE: The breasts were imaged in the cranial caudal and medial lateral oblique views using full field digital mammography and CAD analysis. BREAST COMPOSITION: The breasts are heterogeneously dense, which may obscure small masses. RISK ASSESSMENT CALCULATION: Based on the information provided by the patient, her lifetime risk of breast cancer is high (>20%) (calculated at 20% by Tyrer-Cuzick model and 18% by NCI model). She has a family history of breast cancer (mother diagnosed at age 48, cousin diagnosed at age 35, and aunt diagnosed at age 76. FINDINGS: There is no suspicious mass, clustered microcalcification, or architectural distortion in either breast. There has been no change in the mammographic appearance compared with the prior study. Procedure Note Aisha Stiles MD - 11/02/2017 BILATERAL SCREENING MAMMOGRAM DATE: 11/25/2014. COMPARISON: 07/04/2006. HISTORY: Screening mammogram. TECHNIQUE: The breasts were imaged in the cranial caudal and medial lateral obliqueviews using full field digital mammography and CAD analysis. BREAST COMPOSITION: The breasts are heterogeneously dense, which mayobscure small masses. RISK ASSESSMENT CALCULATION: Based on the information provided by thepatient, her lifetime risk of breast cancer is high (>20%) (calculated at20% by Tyrer-Cuzick model and 18% by NCI model). She has a family historyof breast cancer (mother diagnosed at age 48, cousin diagnosed at age 35, and aunt diagnosed at age 76. FINDINGS: There is no suspicious mass, clustered microcalcification, orarchitectural distortion in either breast. There has been no change in themammographic appearance compared with the prior study. IMPRESSION IMPRESSION: No mammographic evidence of malignancy. BI-RADS Category 1: Negative. RECOMMENDATION: 1. Return for mammograms in one year or sooner if clinically indicated. 2. Based on the information provided by your patient, she may be atelevated risk for breast cancer (lifetime risk of 20% based onTyrer-Cuzick model). Formal risk assessment evaluation by a breast surgeonor certified genetic counselor is recommended. These services are provided at [facility] by Dr. Marcela Montenegro or Carol Muñoz RN [facility] . This report was electronically signed by AISHA STILES M.D. on11/29/2014 9:30 AM . us Historical Provider MAMMO ORDERABLES Final Re sult from Last 3 Months or Most Recently Relevant to Health Maintenance Insurance Care Teams Burner Technician Relationship Specialty Start Date End Date Mckenna Hernández MD PCP - General 08/04/19
--- OUTSIDE RECORDS SUMMARY | 2024-12-09 10:17 | XMS_ITS | Encounter Summary ---
Author Organization [facility] Address [address] [place] [address] Care Team Providers Care Director Of Annual Giving Name Role Phone Mckenna Hernández MD Primary Care Provider [phone] Mckenna Hernández MD Unavailable [phone] Maite Goodwin MD Primary Care Provider [phone] Nilo Elaine MD Primary Care Provider [phone] Patsy Mclaughlin APRN Primary Care Provider + [phone] Maite Goodwin MD Primary Care Provider [phone] Encounter Details Date Type Department Care Team (Late st Contact Info) Description 01/13/2015 Abstract [facility] [address] [place] [address] , Generic MD Lynsey Social History Tobacco Use Types Packs/Day Years Used Date Smoking Tobacco: Never Assessed Comments Unknown Sex and Gender Information Value Date Recorded Sex Assigned at Female 09/20/2022 9:43 AM PHOTOGRAPH MOUNTER Legal Sex Female 8:04 PM CDT Gender Identity Female 09/20/2022 9:43 AM PHOTOGRAPH MOUNTER Sexual Orientation Straight 09/20/2022 9: 43 AM PHOTOGRAPH MOUNTER documented as of this encounter Plan of Treatment Not on file documented as of this encounter Visit Diagnoses Not on filedocumented in this encounter Additional Health Concerns Infection Onset Date Last Indicated Resolved Time COVID-19 Rule Out 08/31/2023 08/31/2023 08/31/2023 2:45 AM PHOTOGRAPH MOUNTER documented as of this encounter Care Teams Director Of Annual Giving Relationship Specialty Start Date End Date Mckenna Hernández MD PCP - General INTERNAL MEDICINE 08/12/18 11/08/22 Mckenna Hernández MD PCP - Hospice Attending 09/01/1805/27 [place] [address] [place] [address] PCP - General FAMILY PRACTICE 11/09/22 11/14/22 [place] [address] [place] [address] PCP - General FAMILY PRACTICE 11/15/22 02/24/23 Patsy Mclaughlin APRN [address] [place] [address] PCP - General NURSE PRACTITIONER 02/25/23 06/06/23 [place] [address] [place], [place] [id number] PCP - General FAMILY PRACTICE 06/07/23 documented as of this encounter
--- OUTSIDE RECORDS SUMMARY | 2024-12-09 10:17 | XMS_ITS | Encounter Summary ---
Author Organization [facility] Address [address] [place] [address] Care Team Providers Care Shingle Shearing Machine Operator Name Role Phone Nilo Elaine MD Primary Care Provider [phone] Patsy Mclaughlin APRN Primary Care Provider [phone] Maite Goodwin MD Primary Care Provider [phone] Encounter Details Date Type Department Care Team (Late st Contact Info) Description 01/30/2023 MyChart Message Enc [facility] Medical Group Family & Internal Medicine [facility] [id number] [place] [phone] Nilo Elaine MD [address] [place] [address] Nurse issues Social History Tobacco Use Types Packs/Day Years [...] Sex Assigned at Female 09/20/2022 9:43 AM DIRECTOR OF ACQUISITIONS Legal Sex Female 8:04 PM CDT Gender Identity Female 09/20/2022 9:43 AM DIRECTOR OF ACQUISITIONS Sexual Orientation Straight 09/20/2022 9: 43 AM DIRECTOR OF ACQUISITIONS documented as of this encounter Progress Notes * Rosalia Alvarez MA - 01/31/2023 9:45 AM CDT OK for referral per Dr. Elaine. * Rosalia Alvarez MA - 01/31/2023 9:22 AM CDT Would like referral for Psychiatry. Ok to place? documented in this encounter Plan of Treatment Not on file documented as of this encounter Visit Diagnoses Not on filedocumented in this encounter Additional Health Concerns Infection Onset Date Last Indicated Resolved Time COVID-19 Rule Out 08/31/2023 08/31/2023 08/31/2023 2:45 AM DIRECTOR OF ACQUISITIONS Assessment Noted Time PHQ-9 Depression Total Score: 6 08/28/19 23 2:36 PM DIRECTOR OF ACQUISITIONS documented as of this encounter Care Teams Shingle Shearing Machine Operator Relationship Specialty [place] [address] [address] [employer] [place] [employer] [place] [address] PCP - General FAMILY PRACTICE 11/15/22 02/24/23 Patsy Mclaughlin APRN [address] [place] [address] PCP - General NURSE PRACTITIONER 02/25/23 06/06/23 [place] [address] [place] [address] PCP - General FAMILY PRACTICE 06/07/23 documented as of this encounter
--- OUTSIDE RECORDS SUMMARY | 2024-12-09 10:17 | XMS_ITS | Encounter Summary ---
Author Organization [facility] Address [address] [place] [address] Care Team Providers Care Body Service Team Member Name Role Phone Mckenna Hernández MD Primary Care Provider [phone] Maite Goodwin MD Primary Care Provider [phone] Nilo Elaine MD Primary Care Provider [phone] Patsy Mclaughlin APRN Primary Care Provider + [phone] Maite Goodwin MD Primary Care Provider [phone] Encounter Details Date Type Department Care Team (Late st Contact Info) Description 07/19/2021 marshallindex Message Enc [facility] Medical Group Family & Internal Medicine [address] [address] [place], [facility] Provider Service Dog Social History Tobacco Use Types Packs/Day Years Used Date Smoking Tobacco: Every Day Cigarettes Last attempted to quit: 08/08/2018 Smokeless Tobacco: Never Alcohol Use Standard Drinks/Week Comments No 0 (1 standard drink = 0.6 oz pur e alcohol) AUDIT-C Answer Date Recorded Frequency of Alcohol Consumption Never 08/12/2018 Average Number of Drinks Not on file 019 Frequency of Binge Drinking Not on file 03/2019 PHQ-2 Answer Date Recorded PHQ-2 Score - If the patient scores above 3, please move on to questions 3-9 2 07/18/2021 Comments No Sex and Gender Information Value Date Recorded Sex Assigned at Female 09/20/2022 9:43 AM SENIOR ACCOUNT MANAGER Legal Sex Female 8:04 PM CDT Gender Identity Female 09/20/2022 9:43 AM SENIOR ACCOUNT MANAGER Sexual Orientation Straight 09/20/2022 9: 43 AM SENIOR ACCOUNT MANAGER COVID-19 Exposure Response Date Recorded In the last month, have you been in contact with someone who was confirmed or suspected to have Coronavirus / COVID-19? No / Unsure 07/18/2021 1:59 PM SENIOR ACCOUNT MANAGER documented as of this encounter Plan of Treatment Not on file documented as of this encounter Visit Diagnoses Not on filedocumented in this encounter Additional Health Concerns Infection Onset Date Last Indicated Resolved Time COVID-19 Rule Out 08/31/2023 08/31/2023 08/31/2023 2:45 AM SENIOR ACCOUNT MANAGER Assessment Noted Time PHQ-9 Depression Total Score: 2 07/18/20 21 4:16 PM SENIOR ACCOUNT MANAGER documented as of this encounter Care Teams Body Service Team Member Relationship Specialty Start Date End Date Mckenna Hernández MD PCP - General INTERNAL MEDICINE 08/12/18 11/08/22 [place] [address] [address] [place] [id number] PCP - General FAMILY PRACTICE 11/09/22 11/14/22 [place] [address] [place] [address] PCP - General FAMILY PRACTICE 11/15/22 02/24/23 Patsy Mclaughlin APRN [address] [place] [address] PCP - General NURSE PRACTITIONER 02/25/23 06/06/23 [place] [address] [facility] [place] [address] PCP - General FAMILY PRACTICE 06/07/23 documented as of this encounter
--- OUTSIDE RECORDS SUMMARY | 2024-12-09 10:17 | XMS_ITS | Encounter Summary ---
Author Organization [facility] Address [address] [place] [address] Care Team Providers Care Resp Ther Name Role Phone Jose Monaco MD Primary Care Provider [phone] Jose Monaco MD Unavailable [phone] Maite Goodwin MD Primary Care Provider [phone] Nilo Elaine MD Primary Care Provider [phone] Patsy Mclaughlin APRN Primary Care Provider + [phone] Maite Goodwin MD Primary Care Provider [phone] Encounter Details Date Type Department Care Team (Late st Contact Info) Description 08/26/2018 CHASER HELPER ONLY [facility] Medical Group Priority Care - [address] [place] [address] Scanned, Documents Social History Tobacco Use Types Packs/Day Years Used Date Smoking Tobacco: Every Day Cigarettes Smokeless Tobacco: Never Alcohol Use Standard Drinks/Week Comments No 0 (1 standard drink = 0.6 oz pur e alcohol) AUDIT-C Answer Date Recorded Frequency of Alcohol Consumption Never 08/12/2018 Average Number of Drinks Not on file 019 Frequency of Binge Drinking Not on file 03/2019 Comments No Sex and Gender Information Value Date Recorded Sex Assigned at Female 09/20/2022 9:43 AM LEAD ATHLETE Legal Sex Female 8:04 PM CDT Gender Identity Female 09/20/2022 9:43 AM LEAD ATHLETE Sexual Orientation Straight 09/20/2022 9: 43 AM LEAD ATHLETE documented as of this encounter Progress Notes * Zscanned, Documents - 08/26/2018 12:00 AM CST ENRIQUE SLOAN MD: ACCT: [id number] ADMIT/SERVICE DATE: 09/09/18 DISCHARGE DATE: : 1965 PT TYPE: REG RCR SEX: F ORD SITE: [facility] CHART DOCUMENT PHYSICIAN CERTIFICATION AND PLAN OF CARE PHYSICAL THERAPY MEDICAL DIAGNOSIS: NECK PAIN, LOW BACK PAIN WITH SCIATICA, RIGHT SHOULDER PAIN PT DIAGNOSIS: RIGHT SHOULDER INSTABILITY, NECK PAIN, LOW BACK PAIN WITH SCIATICA ONSET DATE: AUGUST 26, 2017 ASSESSMENT: PATIENT REPORTS SHE HAS HAD NECK PAIN ONGOING FOR ABOUT ONE YEAR AND RIGHT SHOULDER PAIN THAT STARTED MORE THAN A YEAR AGO. SHE WAS DIAGNOSED WITH WOLF-DANLOS SYNDROME A COUPLE OF YEARS AGO WHICH IS WHEN MOST OF HER LOW BACK AND SHOULDER PAIN BEGAN. IN 2011 SHE HAD AN INCIDENT AT WORK THAT CAUSED A SHELF TO FALL ON HER. SINCE THEN, SHE HAS BEEN SUFFERING FROM CHRONIC PAIN. SHE HAS A HISTORY OF ASTHMA, DEPRESSION, OSTEOPOROSIS, AND HYPERTENSION. SHE ALSO NOTES NUMBNESS AND TINGLING OF THE C8 DERMATOME OF THE RIGHT UPPER EXTREMITY. PATIENT PRESENTS WITH TENDERNESS TO PALPATION OF THE INFERIOR ANGLE OF THE RIGHT SCAPULA. ACTIVE RANGE OF MOTION OF THE RIGHT SHOULDER WAS FLEXION 89 DEGREES, EXTENSION 55 DEGREES, ABDUCTION 85 DEGREES. LEFT ACTIVE RANGE OF MOTION WAS WITHIN NORMAL LIMITS. PASSIVE RANGE OF MOTION OF THE RIGHT SHOULDER WITH FLEXION WAS 145 DEGREES, 47 DEGREES INTERNAL ROTATION, 80 DEGREES EXTERNAL ROTATION, AND WITHIN NORMAL LIMITS FOR ABDUCTION. BILATERAL INTERSCAPULAR MUSCULATURE WAS 3/5 STRENGTH, BILATERAL EXTERNAL ROTATORS OF THE SHOULDER WERE 4-/5, BILATERAL INTERNAL ROTATORS OF THE SHOULDER 4/5, RIGHT SHOULDER FLEXION IS 4-/5, LEFT SHOULDER FLEXION 4/5, RIGHT ELBOW EXTENSION 3+/5. SCAPULAR MOTION WAS ASSESSED WITH ACTIVE MOVEMENT AND NO DISCREPANCIES WERE NOTED. NEER SIGN WAS POSITIVE FOR PAIN ON THE RIGHT, PARMAR-ANN SIGN WAS NEGATIVE FOR IMPINGEMENT ON THE RIGHT. APPREHENSION AND THE RE-LOCATION TEST WERE BOTH POSITIVE FOR RIGHT SHOULDER INSTABILITY. PATIENT PRESENTS WITH FORWARD ROUNDED SHOULDERS AND A FORWARD HEAD. CERVICAL RANGE OF MOTION WAS RIGHT ROTATION 50 DEGREES, LEFT ROTATION 55 DEGREES, EXTENSION 50 DEGREES, FLEXION 25 DEGREES, LATERAL FLEXION BILATERALLY WAS 45 DEGREES. OF THOSE, RIGHT ROTATION, EXTENSION AND FLEXION WERE ALL PAINFUL. COMPRESSION AND SPURLING'S TEST WERE COMPLETED AND BOTH WERE NEGATIVE FOR RADICULAR CERVICAL PAIN. THIS PATIENT WOULD BENEFIT FROM SKILLED PT TO IMPROVE ACTIVE RANGE OF MOTION OF THE RIGHT SHOULDER AND RANGE OF MOTION OF THE CERVICAL SPINE IN ORDER TO IMPROVE FUNCTION. PROBLEM/GOALS LIST: PROBLEM 1: DECREASED CERVICAL RANGE OF MOTION. GOAL 1: PATIENT WILL PRESENT WITH WITHIN NORMAL LIMITS CERVICAL RANGE OF MOTION IN ORDER TO COMPLETE FUNCTIONAL ACTIVITIES IN 4 WEEKS. PROBLEM 2: DECREASED RIGHT SHOULDER RANGE OF MOTION. GOAL 2: PATIENT WILL PRESENT WITH 140 DEGREES OF RIGHT SHOULDER ABDUCTION AND FLEXION IN ORDER TO PLACE OBJECTS ONTO A HIGH SHELF IN 4 WEEKS. PROBLEM 3: DECREASED STRENGTH OF THE RIGHT SHOULDER. GOAL 3: PATIENT WILL PRESENT WITH 4+/5 STRENGTH IN THE RIGHT SHOULDER IN ORDER TO IMPROVE RESTING AND ACTIVE STABILITY OF THE SHOULDER GIRDLE IN 4 WEEKS. PROBLEM 4: IMPAIRED POSTURE. GOAL 4: PATIENT WILL PRESENT WITH 4/5 STRENGTH IN INTERSCAPULAR MUSCULATURE IN ORDER TO IMPROVE STATIC POSTURE IN 4 WEEKS. PROBLEM 5: INADEQUATE KNOWLEDGE OF HEP. GOAL 5: PATIENT WILL BE INDEPENDENT WITH HEP IN 4 WEEKS. TREATMENT PLAN TYPE: THERAPEUTIC EXERCISES TO IMPROVE STRENGTH, RANGE OF MOTION AND STABILITY OF THE RIGHT SHOULDER AND CERVICAL SPINE, MODALITIES PRN, KINESIO TAPE PRN, MANUAL THERAPY TECHNIQUES PRN, GENERAL PATIENT EDUCATION AND HEP. FREQUENCY AND DURATION: 2 TO 3 TIMES PER WEEK FOR 4 TO 6 WEEKS. REHAB POTENTIAL: FAIR FOR THE ABOVE GOALS. INTERMEDIATE GOAL: PATIENT WILL IMPROVE RIGHT SHOULDER STRENGTH AND RANGE OF MOTION WELL CERVICAL RANGE OF MOTION IN ORDER TO DECREASE SUBLUXATIONS OF THE RIGHT SHOULDER AND IMPROVE FUNCTION. TREATMENT PLAN, GOALS, AND PROCEDURES WERE DISCUSSED WITH THIS PATIENT WHO AGREES TO PROCEED AND COOPERATE. PLAN OF CARE PREPARED AND REVIEWED BY YOHANNES CALVOT,DPT ELECTRONICALLY SIGNED BY JOSE MONACO MD 09/18/2018 02:50 P NAVEED GONCALVES, GPT,DPT MD [facility] 08/26/2018 08/28/2018 06:40 A JOB NO: [id number] DOC NO: [id number] ATHLETE documented in this encounter Plan of Treatment Not on file documented as of this encounter Visit Diagnoses Not on filedocumented in this encounter Additional Health Concerns Infection Onset Date Last Indicated Resolved Time COVID-19 Rule Out 08/31/2023 08/31/2023 08/31/2023 2:45 AM LEAD ATHLETE documented as of this encounter Care Teams Resp Ther Relationship Specialty Start Date End Date Jose Monaco MD PCP - General INTERNAL MEDICINE 08/12/18 11/08/22 Jose Monaco MD PCP - Hospice Attending 09/01/1805/27 [place] [address] [address] [place] [id number] PCP - General FAMILY PRACTICE 11/09/22 11/14/22 [place] [address] [place] [address] PCP - General FAMILY PRACTICE 11/15/22 02/24/23 Patsy Mclaughlin APRN [address] [place] [address] PCP - General NURSE PRACTITIONER 02/25/23 06/06/23 [place] [address] [facility] [address] [place] [address] PCP - General FAMILY PRACTICE 06/07/23 documented as of this encounter
--- OUTSIDE RECORDS SUMMARY | 2024-12-09 10:17 | XMS_ITS | Encounter Summary ---
Author Organization [facility] Address [address] [place] [address] Care Team Providers Care Instrument Assembly Supervisor Name Role Phone Mckenna Hernández MD Primary Care Provider [phone] Maite Goodwin MD Primary Care Provider [phone] Nilo Elaine MD Primary Care Provider [phone] Patsy Mclaughlin APRN Primary Care Provider + [phone] Maite Goodwin MD Primary Care Provider [phone] Encounter Details Date Type Department Care Team (Late st Contact Info) Description 12/09/2020 [employer] Message Enc [facility] Medical Group Family & Internal Medicine [address] [address] [facility] Provider Referral Social History Tobacco Use Types Packs/Day Years Used Date Smoking Tobacco: Former Cigarettes Q uit: 08/08/2018 Smokeless Tobacco: Never Alcohol Use Standard [...] 3, please move on to questions 3-9 0 02/15/2020 Comments No Sex and Gender Information Value Date Recorded Sex Assigned at Female 09/20/2022 9:43 AM MANAGER OPERATIONS AND PROCUREMENT Legal Sex Female 8:04 PM CDT Gender Identity Female 09/20/2022 9:43 AM MANAGER OPERATIONS AND PROCUREMENT Sexual Orientation Straight 09/20/2022 9: 43 AM MANAGER OPERATIONS AND PROCUREMENT COVID-19 Exposure Response Date Recorded In the last month, have you been in contact with someone who was confirmed or suspected to have Coronavirus / COVID-19? No / Unsure 12/02/2020 9:53 AM CDT documented as of this encounter Plan of Treatment Not on file documented as of this encounter Visit Diagnoses Not on filedocumented in this encounter Additional Health Concerns Infection Onset Date Last Indicated Resolved Time COVID-19 Rule Out 08/31/2023 08/31/2023 08/31/2023 2:45 AM MANAGER OPERATIONS AND PROCUREMENT Assessment Noted Time PHQ-9 Depression Total Score: 11 019 5:30 PM CDT documented as of this encounter Care Teams Instrument Assembly Supervisor Relationship Specialty Start Date End Date Mckenna Hernández MD PCP - General INTERNAL MEDICINE 08/12/18 11/08/22 [place] [address] [place] [id number] PCP - General FAMILY PRACTICE 11/09/22 11/14/22 [place] [address] [place] [address] PCP - General FAMILY PRACTICE 11/15/22 02/24/23 Patsy Mclaughlin APRN [address] [place], [place] [id number] PCP - General NURSE PRACTITIONER 02/25/23 06/06/23 [place] [address] [facility]. [address] [place] [address] PCP - General FAMILY PRACTICE 06/07/23 documented as of this encounter
--- OUTSIDE RECORDS SUMMARY | 2024-12-09 10:17 | XMS_ITS | Encounter Summary ---
Author Organization [facility] Address [address] [place] [address] Care Team Providers Care Raschel Knitting Machine Operator Name Role Phone Mckenna Hernández MD Primary Care Provider [phone] Mckenna Hernández MD Unavailable [phone] Maite Goodwin MD Primary Care Provider [phone] Nilo Elaine MD Primary Care Provider [phone] Patsy Mclaughlin APRN Primary Care Provider + [phone] Maite Goodwin MD Primary Care Provider [phone] Encounter Details Date Type Department Care Team (Late st Contact Info) Description 12/09/2018 [facility] [employer] ONLY [facility] Medical Group Priority Care - [facility] [address] [place] [address] Scanned, Documents Social History Tobacco [...] 03/2019 PHQ-2 Answer Date Recorded PHQ-2 Score 0 11/26/2018 Comments No Sex and Gender Information Value Date Recorded Sex Assigned at Female 09/20/2022 9:43 AM RIVER BOAT CAPTAIN Legal Sex Female 8:04 PM CDT Gender Identity Female 09/20/2022 9:43 AM RIVER BOAT CAPTAIN Sexual Orientation Straight 09/20/2022 9: 43 AM RIVER BOAT CAPTAIN documented as of this encounter Progress Notes * Zeyad Warren - 12/09/2018 4:57 PM CDT LUIS SLOAN MD: ACCT: [id number] ADMIT/SERVICE DATE: 10/07/18 DISCHARGE DATE: 11/08/18 : 1965 PT TYPE: DIS RCR SEX: F ORD SITE: [facility] CHART DOCUMENT REHABILITATION DISCHARGE SUMMARY THIS PATIENT WAS SEEN FROM AUGUST 26, 2018 UNTIL SEPTEMBER 23, 2018 FOR A TOTAL OF FIVE VISITS. REASON FOR DISCONTINUATION OF SERVICES: PATIENT CANCELED HER LAST FIVE APPOINTMENTS DUE TO PAIN, WEATHER, AND NO TRANSPORTATION. CURRENT PHYSICAL/FUNCTIONAL STATUS: PATIENT SEEMED TO BE PLEASED WITH HER CURRENT FUNCTIONAL STATUS, SHE DISCONTINUED PHYSICAL THERAPY SERVICES AND NEVER RESCHEDULED HER LAST CANCELLED APPOINTMENT. DEGREE OF GOAL ACHIEVEMENT: ALL GOALS ARE ASSUMED TO BE MET AND PATIENT IS SATISFIED WITH CURRENT FUNCTIONAL STATUS SHE DISCONTINUED PHYSICAL THERAPY SERVICES. THIS PATIENT WAS PROVIDED AN HEP ON EVALUATION AND WAS ABLE TO PROGRESS THROUGH EXERCISES IN THE CLINIC WELL. ELECTRONICALLY SIGNED BY NAVEED GONCALVES DPT 12/10/2018 02:40 P TIFFANY/DW1 JOB NO: [id number] DOC NO: [id number] 12/09/2018 12/10/2018 12:05 P CC: documented in this encounter Plan of Treatment Not on file documented as of this encounter Visit Diagnoses Not on filedocumented in this encounter Additional Health Concerns Infection Onset Date Last Indicated Resolved Time COVID-19 Rule Out 08/31/2023 08/31/2023 08/31/2023 2:45 AM RIVER BOAT CAPTAIN Assessment Noted Time PHQ-9 Depression Total Score: 0 11/27/19 2:12 PM CDT documented as of this encounter Care Teams Raschel Knitting Machine Operator Relationship Specialty Start Date End Date Mckenna Hernández MD PCP - General INTERNAL MEDICINE 08/12/18 11/08/22 Mckenna Hernández MD PCP - Hospice Attending 09/01/1805/27 [place] [address] [place], [place] [id number] PCP - General FAMILY PRACTICE 11/09/22 11/14/22 [place] [address] [place], [place] [id number] PCP - General FAMILY PRACTICE 11/15/22 02/24/23 Patsy Mclaughlin APRN [address] [place], [place] [id number] PCP - General NURSE PRACTITIONER 02/25/23 06/06/23 [place] [address] [place] [address] PCP - General FAMILY PRACTICE 06/07/23 documented as of this encounter
--- OUTSIDE RECORDS SUMMARY | 2024-12-09 10:17 | XMS_ITS | Clinical Summary ---
Author Organization [facility] Address [address] [place] [address] Care Team Providers Care Occupational Health Nurse Manager Name Role Phone Maite Goodwin MD Primary Care Provider [phone] Allergies Active Allergy Reactions Criticality Noted Date Comments Duloxetine Hallucinations Medium 06/05/2016 Medications * This document contains information received from the source organization and may not represent a complete record from that organization. Multiple Vitamins-Minerals (MULTIVITAMIN ADULT OR)Indications:green pplement Take 1 tablet by mouth daily. Indications: supplement 9 Active Misc. 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),Chronic bilateral low back pain, unspecified whether sciatica present Wrist brace 1 each 0 Active BACK/SACRO BRACE MISC, DME,Indications:C hronic bilateral low back pain with right-sided sciatica Apply 1 Device topically daily. 1 Device 0 Active Elastic Bandages & Supports (LUMBAR BACK BRACE/SUPPORT PAD) MiscIndications:C hronic midline low back pain with right-sided sciatica 1 Units by Does not apply route daily. LUMBAR BACK BRACE 1 each 0 Active Elastic Bandages & Supports (SHOULDER BRACE MEDIUM) MiscIndications:S houlder instability, right 1 Units by Does not apply route daily. R SHOULDER 1 each 0 Active Misc. Devices (CAREX COCCYX CUSHION) MiscIndications:S acral back pain 1 Units by Does not apply route daily. SACRAL CUSION 1 each 0 Active TENS UNIT SUPPLIES, DME,Indications:C hronic back pain 1 Package by Does not apply route as needed. 1 Package 1 2 Active Probiotic Product (PRO-BIOTIC BLEND OR) Active VENTOLIN HFA 108 (90 Base) MCG/ACT inhalerIndication s:Mild intermittent asthma without complication (HHS/HCC) Inhale 2 puffs into the lungs every 6 (six) hours as needed for Wheezing. 18 g 5 3 Active fluticasone propionate (FLONASE) 50 MCG/ACT nasal sprayIndications: Nasal congestion 2 sprays by Each Nostril route daily. 16 g 5 3 Active lidocaine (XYLOCAINE) 5 % ointmentIndicatio ns:Chronic midline low back pain without sciatica APPLY TOPICALLY TO THE AFFECTED AREA TWICE DAILY 50 g 1 3 Active escitalopram (LEXAPRO) 10 MG tabletIndications :Anxiety TAKE 1 TABLET(10 MG) BY MOUTH DAILY 30 tablet 3 Active pregabalin (LYRICA) 75 MG capsuleIndication s:Fibromyalgia,Ne uropathy TAKE 1 CAPSULE(75 MG) BY MOUTH TWICE DAILY 90 capsule 3 Active ondansetron (ZOFRAN) 8 MG tabletIndications :Nausea TAKE 1 TABLET(8 MG) BY MOUTH EVERY 8 HOURS NEEDED FOR NAUSEA 60 tablet 3 Active gabapentin (NEURONTIN) 300 MG capsule Take 1 capsule (300 mg total) by mouth 3 (three) times daily. Active tiZANidine (ZANAFLEX) 4 MG tablet Take 1 tablet (4 mg total) by mouth every 6 (six) hours as needed. Active diclofenac EC (VOLTAREN) 75 MG tablet Take 1 tablet (75 mg total) by mouth 2 (two) times daily. Active melatonin 10 MG tablet Take 1 tablet (10 mg total) by mouth nightly as needed for Sleep. Active diphenhydrAMINE (BENADRYL) 25 MG capsule Take 1 capsule (25 mg total) by mouth every 6 (six) hours as needed for Itching. Active Active Problems Problem Noted Date Diagnosed Date LUQ abdominal pain 09/25/2022 Overview (09/25/2022): Added automatically from request for surgery [id number] Diarrhea, unspecified type 09/25/2022 Overview (09/25/2022): Added automatically from request for surgery [id number] Chronic constipation 09/25/2022 Overview (09/25/2022): Added automatically from request for surgery [id number] Right-sided low back pain with sciatica 02/01/20 22 Sacroiliitis 06/06/2021 Closed nondisplaced zone II fracture of sacrum, initial encounter ([facility]) 06/06/2021 Complex regional pain syndrome i of lower limb, bilateral 12/20/2020 Assessment & Plan (12/20/2020 2:54 PM CDT): Patient has tried gabapentin, Cymbalta, steroids, physical therapy all with minimal relief. Cymbalta was taken off because of insurance issues. Patient has restarted her gabapentin. Would like to try a TENS unit as she has had success with that in the past. She was taken off prednisone so we will start a Medrol Dosepak. Begin formal physical therapy. Follow-up in 6 weeks. Piriformis syndrome of right side 12/20/2020 Assessment & Plan (02/16/2021 1:21 PM CDT): Some improvement with physical therapy. Continue home exercise program. Assessment & Plan (12/20/2020 2:55 PM CDT): Continue nonsteroidal anti-inflammatory diclofenac 75 mg twice daily. Begin formal physical therapy. Patient having numbness and tingling down the right lower extremity with intractable pain bilateral lower extremity. Pain does seem to be out of proportion. Consider some degree of complex regional pain syndrome. If no significant improvement in 6 weeks consider MRI to the lumbar spine and possible EMG/NCV. Fall from steps, initial encounter 12/20/2020 Overview (12/20/2020): January 10, 2020 Assessment & Plan (12/20/2020 2:57 PM CDT): As the cause of her current increased complaints. Vitamin D deficiency 12/20/2020 Assessment & Plan (12/20/2020 2:59 PM CDT): Last vitamin D level was 22. Recommend 10,000 international units daily. Of vitamin D 3. Consider recheck vitamin D levels in 3 months Joint pain 02/25/2020 Dental abscess 06/18/2019 Chronic fatigue syndrome with fibromyalgia 01/01 Headache 11/05/2018 Overview (11/05/2018): Overview: Backache 11/05/2018 Fibromyalgia 08/28/2017 Wrist pain 08/28/2017 Sinusitis 06/24/2017 Postmenopausal status 01/09/2017 Chronic pain syndrome 12/04/2016 Type I CRPS (complex regional pain syndrome) 09/2016 Assessment & Plan (02/16/2021 1:20 PM CDT): Patient has failed physical therapy and Medrol Dosepak along with her gabapentin and anti-inflammatories. Repeat MRI lumbar spine. EMG/NCV bilateral lower extremities. Referral to neurology. 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 Previous history of fall. Recommend MRI lumbar spine. Assessment & Plan (12/20/2020 2:56 PM CDT): Consider repeat MRI versus EMG/NCV in the future if numbness and tingling does not resolve. Costal chondritis 05/05/2015 Neck pain 09/01/2014 Anxiety 08/23/2014 Asthma ([facility]) 03/18/2014 Hypercholesterolemia 03/18/2014 Resolved Problems Problem Noted Date Diagnosed Date Resolved Date Insomnia 01/02/2017 12/24/2022 Nicotine dependence 02/17/2015 12/25/19 23 Immunizations Immunization Administration Dates Next Due Fluzone 6 Months+ Quad (0.5 mL Prefilled Syringe) 05/15/2021,06/15/2020,08/12/2018 Fluzone Adult - >Age 3 (Prefilled Syringe) 05/05 Influenza (Generic) 09/05/2016 Influenza Adult (Generic) 07/08/2015,06/22/2014 Pneumococcal (Prevnar 13) 05/05/2019 Pneumococcal (Prevnar 20) 03/28/2022 Td (Tenivac) preservative free 11/26/2018 Family History Medical History Relation Comments Arthritis Father Asthma Father COPD Father Cancer Father Vision loss Father EDS Maternal Aunt Arthritis Mother Asthma Mother Cancer Mother Diabetes Mother Other Paternal Aunt Relation Status Comments Father Maternal Aunt Mother Alive Paternal Aunt Social History Tobacco Use Types Packs/Day Years Used Date Smoking Tobacco: Former Cigarettes 0.5 15 0 08/08/2003 - 08/08/2018 Smokeless Tobacco: Current Tobacco Cessation:Ready to Q uit: Not Asked; Counseling Given: Yes Comments:Quit smoking vapes Alcohol Use Standard Drinks/Week [...] Sex Assigned at Female 09/20/2022 9:43 AM METAL FABRICATOR WELDER Legal Sex Female 8:04 PM CDT Gender Identity Female 09/20/2022 9:43 AM METAL FABRICATOR WELDER Sexual Orientation Straight 09/20/2022 9: 43 AM METAL FABRICATOR WELDER Last Filed Vital Signs Vital Sign Reading Time Taken Comments Blood Pressure 162/115 08/31/2023 11:04 AM METAL FABRICATOR WELDER Pulse 78 08/31/2023 1:00 PM METAL FABRICATOR WELDER Temperature 36.3 C (97.4 F) 08/31/2023 11:04 AM METAL FABRICATOR WELDER Respiratory Rate 16 08/31/2023 1:00 PM METAL FABRICATOR WELDER Oxygen Saturation 99% 08/31/2023 11:04 AM METAL FABRICATOR WELDER Inhaled Oxygen Concentration - - Weight 63 kg (139 lb) 08/31/2023 12:12 AM METAL FABRICATOR WELDER Height 162.6 cm (5' 4 ) 08/31/2023 12:12 AM METAL FABRICATOR WELDER Body Mass Index 23.86 08/31/2023 12:12 AM METAL FABRICATOR WELDER Plan of Treatment Health Maintenance Due Date Last Done Comments Cervical Cancer Screening Pa p Smear (Age 30 to 64) Every 3 Years 1965 Colorectal Cancer Screening Colonoscopy (10 Years) 1965 Hepatitis B Vaccines (1 of 3 - 19+ 3-dose series) 1985 Cervical Cancer Screening Pa p with HPV Testing (Age 30 to 64) Every 5 Years 01/17/1996 Cervical Cancer Screening with HPV 01/17/1996 Zoster Vaccines (1 of 2) 01/17/2016 Annual Physical 03/28/2023 03/28/2022 COVID-19 Vaccine (2 - 2023-2 5 season) 2024 01/12/2021 Mammogram Screening 04/16/2024 04/16/2022, 01/01/2019, 03/20/2017 PHQ-2 (Physician [place]) 08/05/2024 DTaP, Tdap and Td Vaccines ( 1 - Tdap) 09/09/2026 11/26/2018 Postponed from 11/27 (Awaiting Documentation) Hepatitis C Completed 05/15/2021, 11/23/2015, 11/23/2015 Pneumococcal Vaccine: 50+ Years Completed 03/28/2022, 05/05/2019 Meningococcal B Vaccine Aged Out No l onger eligible based on patient's age to complete this topic Meningococcal Vaccine Aged Out No debbie wood eligible based on patient's age to complete this topic RSV Immunizations Under 20 Months Aged Out No longer eligible b ased on patient's age to complete this topic Procedures Procedure Name Priority Date/Time Associated Diagnosis Comments MG SCREENING W NADIA TAMAR DIGI Routine 04/16/2022 1:15 PM CDT Encounter for screening mammogram for malignant neoplasm of breast HEPATITIS C ANTIBODY Routine 05/15/2021 12:25 PM CDT Need for hepatitis C screening test from Last 3 Months or Most Recently Relevant to Health Maintenance Results * MG SCREENING W NADIA TAMAR DIGI (04/16/2022 1:15 PM CDT) Anatomical Region Laterality Modality Breast Bilateral Mammography 04/16/2022 1:32 PM CDT Impressions 04/16/2022 1:41 PM CDT IMPRESSION: 1. No mammographic evidence of malignancy. 2. BI-RADS Category 2 - benign findings. MQSA BI-RADS Categories: Category 0 - needs additional imaging evaluation. Category 1 - negative. Category 2 - benign findings. Category 3 - probably benign findings, but short interval follow-up is recommended. Category 4 - suspicious abnormality and biopsy should be considered though the lesion may well be benign. Category 5 - highly suggestive of malignancy and appropriate action should be taken. Category 6 - known biopsy-proven malignancy A) A negative report should not delay a biopsy if a dominant or clinically suspicious mass is present. B) Adenosis and dense breasts may obscure an underlying neoplasm. C) Study interpreted with computer aided detection. Ordered By: MCKENNA MONACO Interpreted By: Sue Angel, 04/16/2022 1:32 PM Narrative 04/16/2022 1:41 PM CDT IMAGING STUDIES: Bilateral screening mammograms with computer-aided detection with 2-D and 3-D imaging. Tomosynthesis. DATE: 04/16/2022 1:00 PM HISTORY: screening . Mother diagnosed breast carcinoma age 56. COMPARISON: 03/20/2017. 01/01/2019. TISSUE TYPE: The breast tissue is heterogeneously dense, which may obscure small masses. FINDINGS: 1. Bilateral screening mammograms with computer detection with 2-D and 3-D imaging. Tomosynthesis. Moderately dense fibroglandular tissue pattern is present. Benign nodularity. 2. No malignant microcalfcifications, new dominant masses, or architectural distortion. 3. No skin thickening or nipple retraction. Axillary regions are within normal limits. us Mckenna Monaco MD MAMMO Final Result * HEPATITIS C ANTIBODY (05/15/2021 12:25 PM CDT) HEPATITIS C AB NON-REACTI VE NON-REACTI VE 05/15/2021 10:56 PM CDT [facility] 05/15/2021 12:2 5 PM CDT Mckenna Monaco MD LABORATORY Final Result [facility] [address] [place] [address], [place] [phone] from Last 3 Months or Most Recently Relevant to Health Maintenance Insurance [facility] MEDICAID Advance Directives * POLST (Latest Code Status on File) Date Activated Date Inactivated Comments 02/07/2020 3:29 PM 07/18/2021 1:54 PM Care Teams Occupational Health Nurse Manager Relationship Specialty [place] [address] [place] [address] PCP - General FAMILY PRACTICE 06/07/23
--- OUTSIDE RECORDS SUMMARY | 2024-12-09 10:17 | XMS_ITS | Encounter Summary ---
Author Organization [facility] Address [address] [place] [address] Care Team Providers Care Gasoline Engine Assembler Name Role Phone Mckenna Hernández MD Primary Care Provider [phone] Mckenna Hernández MD Unavailable [phone] Maite Goodwin MD Primary Care Provider [phone] Nilo Elaine MD Primary Care Provider [phone] Patsy Mclaughlin APRN Primary Care Provider + [phone] Maite Goodwin MD Primary Care Provider [phone] Encounter Details Date Type Department Care Team (Late st Contact Info) Description 05/09/2017 Abstract [facility] CONVERSION [address] [place] [address] , Generic MD Lynsey Social History Tobacco Use Types Packs/Day Years Used Date Smoking Tobacco: Never Assessed Comments Unknown Sex and Gender Information Value Date Recorded Sex Assigned at Female 09/20/2022 9:43 AM DIRECTOR OF CORPORATE COMMUNICATIONS Legal Sex Female 8:04 PM CDT Gender Identity Female 09/20/2022 9:43 AM DIRECTOR OF CORPORATE COMMUNICATIONS Sexual Orientation Straight 09/20/2022 9: 43 AM DIRECTOR OF CORPORATE COMMUNICATIONS documented as of this encounter Plan of Treatment Not on file documented as of this encounter Visit Diagnoses Not on filedocumented in this encounter Additional Health Concerns Infection Onset Date Last Indicated Resolved Time COVID-19 Rule Out 08/31/2023 08/31/2023 08/31/2023 2:45 AM DIRECTOR OF CORPORATE COMMUNICATIONS documented as of this encounter Care Teams Gasoline Engine Assembler Relationship Specialty Start Date End Date Mckenna Henrández MD PCP - General INTERNAL MEDICINE 08/12/18 11/08/22 Mckenna Hernández MD PCP - Hospice Attending 09/01/1805/27 [place] [address] [place] [address] PCP - General FAMILY PRACTICE 11/09/22 11/14/22 [place] [address] [place] [address] PCP - General FAMILY PRACTICE 11/15/22 02/24/23 Patsy Mclaughlin APRN [address] [place] [address] PCP - General NURSE PRACTITIONER 02/25/23 06/06/23 [place] [address] [place], [place] [id number] PCP - General FAMILY PRACTICE 06/07/23 documented as of this encounter
--- OUTSIDE RECORDS SUMMARY | 2024-12-09 10:17 | XMS_ITS | Encounter Summary ---
Author Organization [facility] Address [address] [place] [address] Care Team Providers Care Hand Booked Folder And Stitcher Name Role Phone Mckenna Hernández MD Primary Care Provider [phone] Mckenna Hernández MD Unavailable [phone] Maite Goodwin MD Primary Care Provider [phone] Nilo Elaine MD Primary Care Provider [phone] Patsy Mclaughlin APRN Primary Care Provider + [phone] Maite Goodwin MD Primary Care Provider [phone] Encounter Details Date Type Department Care Team (Late st Contact Info) Description 01/09/[address] [facility] CONVERSION [address] [place] [address] , Generic MD Lynsey Social History Tobacco Use Types Packs/Day Years Used Date Smoking Tobacco: Never Assessed Comments Unknown Sex and Gender Information Value Date Recorded Sex Assigned at Female 09/20/2022 9:43 AM METALLURGICAL SPECIALIST Legal Sex Female 8:04 PM CDT Gender Identity Female 09/20/2022 9:43 AM METALLURGICAL SPECIALIST Sexual Orientation Straight 09/20/2022 9: 43 AM METALLURGICAL SPECIALIST documented as of this encounter Plan of Treatment Not on file documented as of this encounter Visit Diagnoses Not on filedocumented in this encounter Additional Health Concerns Infection Onset Date Last Indicated Resolved Time COVID-19 Rule Out 08/31/2023 08/31/2023 08/31/2023 2:45 AM METALLURGICAL SPECIALIST documented as of this encounter Care Teams Hand Booked Folder And Stitcher Relationship Specialty Start Date End Date Mckenna Hernández MD PCP - General INTERNAL MEDICINE 08/12/18 11/08/22 Mckenna Hernández MD PCP - Hospice Attending 09/01/1805/27 [place] [address] [place] [address] PCP - General FAMILY PRACTICE 11/09/22 11/14/22 [place] [address] [place] [address] PCP - General FAMILY PRACTICE 11/15/22 02/24/23 Patsy Mclaughlin APRN [address] [place] [address] PCP - General NURSE PRACTITIONER 02/25/23 06/06/23 [place] [address] [place], [place] [id number] PCP - General FAMILY PRACTICE 06/07/23 documented as of this encounter
--- OUTSIDE RECORDS SUMMARY | 2024-12-09 10:17 | XMS_ITS | Encounter Summary ---
Author Organization [facility] Address [address] [place] [address] Care Team Providers Care Microbiology Professor Name Role Phone Mckenna Hernández MD Primary Care Provider [phone] Maite Goodwin MD Primary Care Provider [phone] Nilo Elaine MD Primary Care Provider [phone] Patsy Mclaughlin APRN Primary Care Provider + [phone] Maite Goodwin MD Primary Care Provider [phone] Encounter Details Date Type Department Care Team (Late st Contact Info) Description 02/27/2021 retickr Message Enc [facility] Family & Internal Medicine [address] [id number] [facility] Provider Prior Auth Social History Tobacco Use Types Packs/Day Years [...] Sex Assigned at Female 09/20/2022 9:43 AM VEGETABLE GRADER Legal Sex Female 8:04 PM CDT Gender Identity Female 09/20/2022 9:43 AM VEGETABLE GRADER Sexual Orientation Straight 09/20/2022 9: 43 AM VEGETABLE GRADER COVID-19 Exposure Response Date Recorded In the last month, have you been in contact with someone who was confirmed or suspected to have Coronavirus / COVID-19? No / Unsure 02/22/2021 1:59 PM CDT documented as of this encounter Plan of Treatment Not on file documented as of this encounter Visit Diagnoses Not on filedocumented in this encounter Additional Health Concerns Infection Onset Date Last Indicated Resolved Time COVID-19 Rule Out 08/31/2023 08/31/2023 08/31/2023 2:45 AM VEGETABLE GRADER Assessment Noted Time PHQ-9 Depression Total Score: 11 019 5:30 PM CDT documented as of this encounter Care Teams Microbiology Professor Relationship Specialty Start Date End Date Mckenna Hernández MD PCP - General INTERNAL MEDICINE 08/12/18 11/08/22 [place] [address] [place] [id number] PCP - General FAMILY PRACTICE 11/09/22 11/14/22 [place] [address] [place] [address] PCP - General FAMILY PRACTICE 11/15/22 02/24/23 Patsy Mclaughlin APRN [id number] [place] [address] PCP - General NURSE PRACTITIONER 02/25/23 06/06/23 [place] [address] [facility]. [address] [place] [address] PCP - General FAMILY PRACTICE 06/07/23 documented as of this encounter
--- OUTSIDE RECORDS SUMMARY | 2024-12-09 10:17 | XMS_ITS | Encounter Summary ---
Author Organization [facility] Address [address] [place] [address] Care Team Providers Care Sap Administrator Name Role Phone Nilo Elaine MD Primary Care Provider [phone] Patsy Mclaughlin APRN Primary Care Provider + [phone] Maite Goodwin MD Primary Care Provider [phone] Encounter Details Date Type Department Care Team (Late st Contact Info) Description 02/12/2023 MyChart Message Enc [facility] Family & Internal Medicine [facility] [id number] [place] [phone] Nilo Elaine MD [address] [place] [id number] Refill Social History Tobacco Use Types Packs/Day Years [...] Sex Assigned at Female 09/20/2022 9:43 AM CLINICAL RESEARCH ASSOCIATE Legal Sex Female 8:04 PM CDT Gender Identity Female 09/20/2022 9:43 AM CLINICAL RESEARCH ASSOCIATE Sexual Orientation Straight 09/20/2022 9: 43 AM CLINICAL RESEARCH ASSOCIATE documented as of this encounter Plan of Treatment Not on file documented as of this encounter Visit Diagnoses Not on filedocumented in this encounter Additional Health Concerns Infection Onset Date Last Indicated Resolved Time COVID-19 Rule Out 08/31/2023 08/31/2023 08/31/2023 2:45 AM CLINICAL RESEARCH ASSOCIATE Assessment Noted Time PHQ-9 Depression Total Score: 6 08/28/19 2:36 PM CLINICAL RESEARCH ASSOCIATE documented as of this encounter Care Teams Sap Administrator Relationship Specialty [place] [address] [place] [address] PCP - General FAMILY PRACTICE 11/15/22 02/24/23 Patsy Mclaughlin APRN [address] [place] [address] PCP - General NURSE PRACTITIONER 02/25/23 06/06/23 [place] [address] [place] [address] PCP - General FAMILY PRACTICE 06/07/23 documented as of this encounter
[2024-12-09 13:48] LABS: Hematocrit 39.9 % (37.0-47.0); Hemoglobin 12.7 g/dL (12.0-15.0); Mean Corpuscular HGB Conc 31.8 g/dl (32-36); Mean Corpuscular Hemoglobin 30.8 pg (26-34); Mean Corpuscular Volume 96.6 fl (80-100); Mean Platelet Volume 8.9 fl (7.4-10.4); Platelet Count Result 416 k/mm3 (150-375); Red Blood Count 4.13 M/mm3 (4.2-5.4); Red Cell Distribution Width 12.8 % (11.5-14.5)
[2024-12-09 14:13] LABS: Alanine Aminotransferase 27 U/L (6-35); Albumin Level 4.9 g/dL (3.5-5.1); Alkaline Phosphatase 105 U/L (38-126); Anion Gap 11 mmol/L (4-12); Aspartate Amino Transferase 31 U/L (14-36); Bilirubin,Total 0.7 mg/dL (0.2-1.3); Blood Urea Nitrogen 15 mg/dL (7-17); Calcium 9.7 mg/dL (8.4-10.2); Carbon Dioxide 23 mmol/L (22-30); Chloride 101 mmol/L (98-107); Cholesterol 318 mg/dL (0-200); Estimated Glomerular Filt Rate > 60; Glucose 99 mg/dL (65-110); HDL Direct 72 mg/dL; Iron 174 ug/dL (37-170); Potassium 4.1 mmol/L (3.4-5.0); Sodium 135 mmol/L (137-145); Triglycerides 379 mg/dL (<150)
[2024-12-09 14:27] LABS: LDL Cholesterol Direct 169 mg/dL
[2024-12-09 14:31] LABS: Percent Iron Saturation 54 % (20-50)
[2024-12-09 18:04] LABS: Thyroid Stimulating Hormone 0.536 uIU/mL (0.465-4.680)
[2024-12-09 18:11] LABS: Hemoglobin A1C 5.5 % (<5.7)
[2024-12-11 12:23] LABS: Thyroid Peroxidase Antibodies 1 IU/mL (<9)
== END 2024-12-09 09:43 | disposition home or self-care (01) ==
LOC: ANHGOSHLAB 09:43
PROVIDERS: PCP Family Medicine; Visit Provider Family Medicine
DX: R79.89 Other specified abnormal findings of blood chemistry (principal); F32.A Depression, unspecified; E78.5 Hyperlipidemia, unspecified; D64.9 Anemia, unspecified; I10 Essential (primary) hypertension; E66.3 Overweight; Z79.899 Other long term (current) drug therapy; R73.09 Other abnormal glucose
CPT/HCPCS: 36415; 80053; 80061; 82728; 83036; 83540; 83550; 84439; 84443; 85027; 86376

== ENCOUNTER 2025-07-11 20:56 | Emergency (ER) | payer MEDICARE, BC, SELFPAY ==
--- NOTE | ~2025-07-11 | CT_ITS ---
CT HEAD NON-CONTRAST CT C-SPINE Clinical History: fall, syncope Comparison: None Technique: Unenhanced axial images skull base to vertex. Coronal, sagittal reformats. Axial images thoracic inlet to skull base. Sagittal and coronal reformats. CT images acquired with automatic exposure control for dose reduction DLP: 681 mGy-cm Findings: Head: Sulci, ventricles: Unremarkable. No intracerebral hemorrhage. No evidence acute territorial infarct. No mass effect, midline shift, intra-/extra-axial fluid collection. Bony calvarium intact. Visualized paranasal sinuses: Clear. Mastoid air cells: Clear. C-spine: No acute fracture or listhesis. Straightening of normal cervical lordosis. Minimal degenerative changes. Disc spaces maintained. Prevertebral soft tissues within normal limits. Visualized lung apices: Clear. Visualized thyroid: Unremarkable. No enlarged cervical nodes. IMPRESSION: HEAD: 1. No acute intracranial findings. C-SPINE: 1. No acute fracture. Reviewed, dictated and finalized at location R. ITE OPERATOR IMPRESSION: HEAD: 1. No acute intracranial findings. C-SPINE: 1. No acute fracture.
--- NOTE | ~2025-07-11 | CT_ITS ---
EXAMINATION: CTA chest abdomen pelvis DATE: 07/11/2025 21:57 INDICATION: Aortic dissection. TECHNIQUE: Computed tomographic angiography (CTA) of the chest, abdomen, and pelvis was performed with 100 mL Omnipaque-350 intravenous contrast. Automated exposure control and iterative reconstruction technique were employed. The dose- length product was 1327.73 mGy-cm. Maximum intensity projection 3D- reconstructions of the aorta and other arteries were constructed by the technologist on a separate workstation. COMPARISON: Chest CT 10/03/2023 FINDINGS: CHEST CTA: The lungs demonstrate mild atelectasis. No pleural effusion. The heart size is normal. No pericardial effusion. There is a filling defect in ascending aorta, consistent with thrombus. There is no pulmonary embolus. There is mild thoracic spondylosis. ABDOMEN AND PELVIS CTA: The liver, gallbladder, spleen, pancreas, and adrenal glands are normal. There are infarcts in right kidney. There is a 5 mm cyst in left kidney. There are no dilated loops of bowel. The appendix is normal. There are no pathologically enlarged lymph nodes. There is no free intraperitoneal fluid. There is no significant stenosis of celiac axis, superior mesenteric artery, the renal arteries, or inferior mesenteric artery. There is mild lumbar spondylosis. IMPRESSION: 1. Thrombus in ascending aorta. 2. Infarcts in right kidney. Reviewed, dictated and finalized at location E. CTION MACHINE OPERATOR
--- NOTE | ~2025-07-11 | CT_ITS ---
EXAM/PROCEDURE: CT thoracic lumbar wo con HISTORY: fall COMPARISON: None available. TECHNIQUE: CT of the thoracic and lumbar spine performed FINDINGS: No fracture lucency or traumatic malalignment seen in the thoracic or lumbar spine. No gross prevertebral or paraspinal soft tissue swelling or hematoma seen. Multilevel degenerative changes seen with no large disc herniations or severe spinal canal stenosis. IMPRESSION: No acute findings. NOTE: Preliminary radiology report provided by [facility] radiologist. Reviewed, dictated and finalized at location A. HERMAL OPERATIONS ENGINEER IMPRESSION: No acute findings. NOTE: Preliminary radiology report provided by [facility] radiologist.
[2025-07-11 21:08] VITALS: BP 57/44; PULSE 74; RESP 28; O2SAT 97
--- NOTE | 2025-07-11 21:24 | ECG_ITS ---
Test Date: 2025-07-11 22:07:20 Measurements Intervals [place] Rate: 80 P: 63 MN: 207 QRS: 68 QRSD: 94 T: 80 QT: 412 QTc: 477 Interpretive Statements SINUS RHYTHM BASELINE ARTIFACT- I, II, III, AVR, AVL, AVF, V1-V6 NORMAL ECG No previous ECG available for comparison Electronically Signed On 07-12-2025 06:03:43 JIG GRINDER SET UP OPERATOR by Rusty Dorman D.O.
--- NOTE | 2025-07-11 21:26 | ED.GENADULT ---
HPI - General Adult General Chief complaint: Unspecified Stated complaint: chest/rib pain Time Seen by Provider: 07/11/25 21:11 Source: patient Mode of arrival: EMS Limitations: no limitations History of Present Illness HPI narrative: Patient is a 60-year-old female presents to the emergency department complaining of chest pain, passing out, feeling sick. Patient notes that she started feeling unwell last night, started as some chest pain this morning this persisted throughout the day, had an episode just prior to arrival which she passed out and when she came back to she was having a lot of chest pain, notes it is diffuse throughout her upper abdomen lower chest seems to come and go in waves. Denies any history of heart disease. Notes that she takes multiple Advil daily and has Precious-Danlos syndrome, does not see a heart doctor, has a history of dislocating multiple ribs. Patient had episode of diarrhea today, denies any bloody nose. Admits to feeling nauseated. Admits to feeling lightheaded. Denies any new or change medications. Denies any known fevers. Admits to having some neck discomfort since she passed out. Denies use of blood thinners. Notes that her diarrhea is overall been watery, not darker melanotic on bright red in appearance, no she is having about 3-4 episodes of diarrhea daily. Admits to dysuria, urinary frequency, urinary urgency. Denies any recent hospitalizations or recent antibiotic use or recent travel. Related Data Home Medications ?Medication ?Instructions ?Recorded ?Confirmed ?Last Taken ?Type biotin 1 mg capsule 1 mg PO DAILY 11/07/23 04/22/25 02/23/24 History diphenhydramine HCl 25 mg tablet 25 mg PO DAILY 02/14/24 04/22/25 02/26/24 History lidocaine 5 % topical patch patch topical 07/21/24 04/22/25 Unknown History lorazepam 0.5 mg tablet mg PO 07/21/24 04/22/25 Unknown History venlafaxine 150 mg mg PO 07/21/24 04/22/25 Unknown History capsule,extended release 24 hr fluoxetine 40 mg capsule mg PO 12/09/24 04/22/25 Unknown History melatonin 10 mg capsule 10 mg PO QHS 12/15/24 04/22/25 Unknown History Allergies Allergy/AdvReac Type Severity Reaction Status Date / Time No Known Allergies Allergy Verified 04/22/25 11:38 Review of Systems Review of Systems: A 10 system review of systems was completed on the patient and is negative except for what is stated in the HPI. Nursing and ancillary documentation was reviewed. [facility] Past Medical History Medical History Sacroiliitis Dorsalgia Lumbar stenosis Lumbar spondylosis Vertebrogenic low back pain EDS (Precious-Danlos syndrome) CRPS (complex regional pain syndrome type I) Seizures Osteoporosis IBS (irritable bowel syndrome) Hyperlipidemia Headache GERD (gastroesophageal reflux disease) Colitis Arthritis Anxiety Asthma Allergies Hypertension Surgical History Surgical History H/O section No significant past surgical history Family History Family History Father Asthma Lung cancer Depression Hypertension Mother Asthma Breast cancer Depression Hypertension Heart disease Diabetes mellitus Thyroid disorder Sibling Alcoholism Thyroid disorder Asthma Grandparent Diabetes mellitus Social History Social History Smoking packs per day: 0.50 Smoking cigarettes per day: 10.0 Years smoked: 40 Smoking pack-years: 20.00 Smoking status: Former smoker Tobacco type: cigarettes and e-cigarettes/vaping Smoking end date: 08/03/20 Alcohol intake: former Substance use: current Substance use type: marijuana Other substance usage details: edibles Last use: 3X monthly Lack of Transportation: No Lack of Food: Never True Current Housing: I Have Housing Concerned About Future Housing: No Difficulty Paying Gas/Electric Bills: No Difficulty Paying for Meds: No Currently Unemployed: No Education: Trade/Vocational Certificate Difficulty w/ Childcare or Family Care: No Living arrangements: with family Spiritual care concerns: No Exam Narrative: CONST: Appears pale. Intermittently appearing uncomfortable complaining of chest pain. Appears anxious. HENMT: Head is normocephalic and atraumatic. Dry mucous membranes. No posterior oropharynx erythema. EYES: No scleral icterus. No conjunctival injection. Mild conjunctival pallor. PERRL. NECK: No meningeal signs. RESP: Able to speak in full sentences. Normal respiratory effort. CTAB. CARDIO: Regular rate. Regular rhythm. 1+ DP and radial pulses bilaterally. GI: Nondistended. Generalized abdominal tenderness palpation without focal tenderness to palpation, no rebound or guarding or rigidity. Soft. : No CVA tenderness to palpation. SKIN: No rashes or lesions noted on exposed skin. NEURO: Oriented x3. Moves all extremities. Sensation intact to light touch throughout all 4 extremities. No focal strength deficits. Speech is clear and fluent. No dysmetria bilaterally. Normal [id number] testing bilaterally. No facial asymmetry. Extraocular motions intact. Visual maldonado intact to confrontation. No nystagmus. No jimenez inattention or extinction. EXTREM/MSK/BACK: No pedal edema. Course Vital Signs Vital signs: Vital Signs Pulse Rate 74 07/11/25 21:08 Respiratory Rate 28 H 07/11/25 21:08 Blood Pressure 57/44 L 07/11/25 21:08 Pulse Oximetry 97 07/11/25 21:08 Oxygen Delivery Room Air 07/11/25 21:08 Temperature 98.0 F 07/11/25 23:24 Pulse Rate 91 07/12/25 01:17 Respiratory Rate 20 07/12/25 01:17 Blood Pressure 140/81 07/12/25 01:17 Pulse Oximetry 99 07/12/25 01:17 Oxygen Delivery Room Air 07/11/25 21:08 MDM MDM Narrative Medical decision making narrative: Patient presents with the above complaint. Initial vitals are remarkable for hypotension. Physical examination as noted above. Plan discussed: laboratory analysis, EKG, imaging. Patient ordered IVF, zofran, NPO, continuous cardiac monitoring, continuous pulse oximetry. Stat EKG obtained. Patient taken stat to CT. CBC reveals a white blood cell count 10.3, hemoglobin 11.8, immature granulocyte count is 0.13. Coags are within normal limits. Comprehensive metabolic panel reveals a sodium 135, bicarb 17, anion gap 16, BUN of 22, creatinine 1.94, glucose 148. Lipase is 197. test negative. Ethyl alcohol level is 58. CRP is less than 0.5. Troponin is less than 0.012. Total creatine kinase is 46. Magnesium is 1.8. Lactic acid is 5.3. Most recent creatinine on file from December 09, 2024 was 0.81. Velásquez catheter ordered for strict I&Os. 30 cc/kg IV fluid bolus has been ordered. Empiric antibiotics ordered. CT of the head preliminary findings radiology impression is no evidence of acute intracranial abnormality. No intracranial hemorrhage, mass effect or edema. No skull fracture. CT of the cervical spine preliminary findings per Radiology interpretation is no evidence of acute fracture or traumatic subluxation. No high-grade central canal stenosis. CT of the thoracic spine preliminary findings radiology interpretation is no evidence of acute fracture or traumatic subluxation. No high-grade central canal stenosis. CT of the lumbar spine preliminary findings radiology interpretation is no evidence of acute fracture or traumatic subluxation. No high-grade central canal stenosis. CTA of the chest preliminary findings radiology interpretation is normal caliber aorta without evidence of dissection. Anterior proximal aortic arch free-floating thrombus/noncalcified plaque 0.8 x 0.4 cm. Correlate with echocardiography. No evidence of acute intrathoracic abnormality. Cardiomegaly. Bibasilar dependent atelectatic changes. No focal consolidation, pleural effusion or pneumothorax. CTA of the abdomen pelvis preliminary findings radiology interpretation is normal caliber aorta without evidence of dissection, patent bilateral renal arteries, patent celiac and SMA/HANS. Right kidney peripheral wedge-shaped areas of hypoenhancement may reflect infarcts and or infection. No obstructive uropathy. Possibly embolic in nature. No bowel obstruction or inflammation. TSH is 5.080. [facility] access line contacted for vascular surgery consultation and potential transfer, pending call back at this time. I was connected with vascular surgery Dr. Zamudio who has reviewed the imaging, notes this is in the ascending aorta and needs CT surgery, [facility] is connecting me with CT surgery, pending call back at this time. BNP is 83. Urinalysis reveals a high specific gravity greater than 1.045, 1+ protein, 6-10 casts. UDS is positive for cannabinoids. COVID and influenza and RSV testing are negative. VBG shows a pH of 7.302, pCO2 of 35.8, and bicarb is 17.3 consistent with a likely metabolic acidosis with respiratory alkalosis. I was connected with CT surgery Dr. Mcgrath who notes to start the patient on heparin, transfer from ER to ER, will see the patient upon arrival to the ER. Access line is going to connect me with the ER, pending call back at this time. Dr. Mcgrath called back and notes that he is not certain as this may actually be a dissection and really wants to get a CTA gated for dissection specifically, we discussed repeating the CT here given that we already did the CTA dissection protocol, he notes rather than giving her repeat contrast here to send her ER to ER and ensure that they know to perform the CT gated for the aorta dissection protocol when she arrives. I was connected with ER Dr. Salinas who has accepted the patient for transfer. I called back CT SIRS as well to discuss administering any heparin and he notes to not give heparin at this time. Differential Diagnosis Differential Diagnosis: Aortic dissection, ACS, pulmonary embolism, metabolic derangement, electrolyte derangement, GI bleed, viral syndrome, enteritis, intracranial hemorrhage, fracture, substance abuse, UTI, pneumonia, acute aortic syndrome, pancreatitis, hepatobiliary pathology, bowel obstruction, dysrhythmia, pericardial effusion. Dehydration. Medical Records I have reviewed the following patient records and this information was taken into consideration when formulating the assessment and plan.: previous labs and previous ER visits Lab Data MDM Lab Attestation statement: I personally reviewed the patient's lab results. 07/12/25 00:58 07/11/25 21:29 Labs: Lab Results 07/11/25 07/11/25 07/11/25 Range/Units 21:28 21:29 21:29 WBC 10.3 H (4.5-10.0) K/mm3 RBC 3.85 L (4.2-5.4) M/mm3 Hgb 11.8 L (12.0-15.0) g/dL Hct 35.8 L (37.0-47.0) % MCV 93.0 (80-100) fl MCH 30.6 (26-34) pg MCHC 33.0 (32-36) g/dl RDW 12.7 (11.5-14.5) % Plt Count 355 (150-375) k/mm3 MPV 8.4 (7.4-10.4) fl Immature Gran % (Auto) 1.3 H (0-0.5) % Neut % (Auto) 60.5 (45.5-73.1) % Lymph % (Auto) 26.5 (18.3-44.2) % [place] % (Auto) 8.3 (2.6-8.5) % Eos % (Auto) 2.5 (0-4.4) % Baso % (Auto) 0.9 (0.2-1.2) % Lymph # (Auto) 2.72 (0.9-3.2) K/mm3 [place] # (Auto) 0.9 H (0.1-0.6) K/mm3 Eos # (Auto) 0.3 (0-0.3) K/mm3 Baso # (Auto) 0.1 (0.0-0.1) K/mm3 Abs Immat Gran (auto) 0.13 H (0.00-0.031) K/mm3 Absolute Neuts (auto) 6.2 (1.3-6.7) K/mm3 Absolute Nucleated RBC 0.000 (0.0-0.012) K/mm3 Nucleated RBC % 0.0 (0.0-0.2) % PT 13.2 (11.1-14.7) Seconds INR 1.0 APTT 23.5 (22.3-36.8) Seconds Sodium 135 L (137-145) mmol/L Potassium 4.2 (3.4-5.0) mmol/L Chloride 102 (98-107) mmol/L Carbon Dioxide 17 L (22-30) mmol/L Anion Gap 16 H (4-12) mmol/L BUN 22 H (7-17) mg/dL Creatinine 1.94 H (0.7-1.0) mg/dL Estim Creat Clear Calc Not Reportable Estimated GFR 26 L (59 - ) Glucose 148 H (65-110) mg/dL Lactic Acid 5.3 H* (0.7-2.0) mmol/L Calcium 9.5 (8.4-10.2) mg/dL Magnesium 1.8 (1.6-2.3) mg/dL Total Bilirubin 0.2 (0.2-1.3) mg/dL AST 35 (14-36) U/L ALT 35 (6-35) U/L Alkaline Phosphatase 68 (38-126) U/L Total Creatine Kinase 46 (30-135) U/L Troponin I Cancelled < 0.012 C-Reactive Protein < 0.5 (<1.0) mg/dL NT-Pro-B Natriuret Pep (19.9-100) pg/mL Total Protein 6.7 (6.3-8.2) g/dL Albumin 4.3 (3.5-5.1) g/dL Lipase 197 (23-300) U/L TSH (Reflex) 5.080 H (0.465-4.68) uIU/mL Free T4 1.20 (0.78-2.19) ng/dL Total T3 1.36 (0.82-1.58) NG/ML Serum HCG, Qual Negative Urine Color (Yellow) Urine Appearance (Clear) Urine pH (5.0-9.0) Ur Specific [place] (1.001-1.035) Urine Protein (Negative) mg/dL Urine Glucose (UA) (Negative) mg/dL Urine Ketones (Negative) mg/dL Ur Blood (Man) (Negative) Urine Nitrate (Negative) Urine Bilirubin (Negative) Urine Urobilinogen (<2.0) mg/dL Add Ur Microanalysis Leukocyte Esterase Rfl (Negative) IAIN/UL Urine RBC (0-2) /hpf Urine WBC (0-3) /hpf Ur Squamous Epith Cells (Few) /hpf Urine Bacteria /hpf Urine Casts Nasal MRSA (PCR) (NOT DETECTE) Urine Opiates Screen (Negative) Urine Methadone Screen (Negative) Ur Barbiturates Screen (Negative) Ur Phencyclidine Scrn (Negative) Ur Amphetamine Screen (Negative) U Benzodiazepines Scrn (Negative) Urine Cocaine Screen (Negative) U Cannabinoids Screen (Negative) Ethyl Alcohol 58 (<10) mg/dL Influenza A (RT-PCR) (Negative) Influenza B (RT-PCR) (Negative) RSV (RT-PCR) (Negative) SARS-CoV-2 RNA (RT-PCR) (Negative) Blood Type A Positive Antibody Screen Negative 07/11/25 07/11/25 07/11/25 Range/Units 22:48 23:02 23:16 WBC (4.5-10.0) K/mm3 RBC (4.2-5.4) M/mm3 Hgb (12.0-15.0) g/dL Hct (37.0-47.0) % MCV (80-100) fl MCH (26-34) pg MCHC (32-36) g/dl RDW (11.5-14.5) % Plt Count (150-375) k/mm3 MPV (7.4-10.4) fl Immature Gran % (Auto) (0-0.5) % Neut % (Auto) (45.5-73.1) % Lymph % (Auto) (18.3-44.2) % [place] % (Auto) (2.6-8.5) % Eos % (Auto) (0-4.4) % Baso % (Auto) (0.2-1.2) % Lymph # (Auto) (0.9-3.2) K/mm3 [place] # (Auto) (0.1-0.6) K/mm3 Eos # (Auto) (0-0.3) K/mm3 Baso # (Auto) (0.0-0.1) K/mm3 Abs Immat Gran (auto) (0.00-0.031) K/mm3 Absolute Neuts (auto) (1.3-6.7) K/mm3 Absolute Nucleated RBC (0.0-0.012) K/mm3 Nucleated RBC % (0.0-0.2) % PT (11.1-14.7) Seconds INR APTT (22.3-36.8) Seconds Sodium (137-145) mmol/L Potassium (3.4-5.0) mmol/L Chloride (98-107) mmol/L Carbon Dioxide (22-30) mmol/L Anion Gap (4-12) mmol/L BUN (7-17) mg/dL Creatinine (0.7-1.0) mg/dL Estim Creat Clear Calc Estimated GFR (59 - ) Glucose (65-110) mg/dL Lactic Acid (0.7-2.0) mmol/L Calcium (8.4-10.2) mg/dL Magnesium (1.6-2.3) mg/dL Total Bilirubin (0.2-1.3) mg/dL AST (14-36) U/L ALT (6-35) U/L Alkaline Phosphatase (38-126) U/L Total Creatine Kinase (30-135) U/L Troponin I C-Reactive Protein (<1.0) mg/dL NT-Pro-B Natriuret Pep 83 (19.9-100) pg/mL Total Protein (6.3-8.2) g/dL Albumin (3.5-5.1) g/dL Lipase (23-300) U/L TSH (Reflex) (0.465-4.68) uIU/mL Free T4 (0.78-2.19) ng/dL Total T3 (0.82-1.58) NG/ML Serum HCG, Qual Urine Color Yellow (Yellow) Urine Appearance Clear (Clear) Urine pH 6.5 (5.0-9.0) Ur Specific [place] > 1.045 H (1.001-1.035) Urine Protein 1+ H (Negative) mg/dL Urine Glucose (UA) Negative (Negative) mg/dL Urine Ketones Negative (Negative) mg/dL Ur Blood (Man) Negative (Negative) Urine Nitrate Negative (Negative) Urine Bilirubin Negative (Negative) Urine Urobilinogen 0.2 (<2.0) mg/dL Add Ur Microanalysis Reviewed Leukocyte Esterase Rfl Negative (Negative) IAIN/UL Urine RBC 0-2 (0-2) /hpf Urine WBC 0-5 (0-3) /hpf Ur Squamous Epith Cells None seen (Few) /hpf Urine Bacteria None seen /hpf Urine Casts 6-10 Nasal MRSA (PCR) Not detected (NOT DETECTE) Urine Opiates Screen Negative (Negative) Urine Methadone Screen Negative (Negative) Ur Barbiturates Screen Negative (Negative) Ur Phencyclidine Scrn Negative (Negative) Ur Amphetamine Screen Negative (Negative) U Benzodiazepines Scrn Negative (Negative) Urine Cocaine Screen Negative (Negative) U Cannabinoids Screen Positive A (Negative) Ethyl Alcohol (<10) mg/dL Influenza A (RT-PCR) Negative (Negative) Influenza B (RT-PCR) Negative (Negative) RSV (RT-PCR) Negative (Negative) SARS-CoV-2 RNA (RT-PCR) Negative (Negative) Blood Type Antibody Screen 07/12/25 07/12/25 Range/Units 00:05 00:58 WBC 18.6 H (4.5-10.0) K/mm3 RBC 3.87 L (4.2-5.4) M/mm3 Hgb 11.8 L (12.0-15.0) g/dL Hct 36.1 L (37.0-47.0) % MCV 93.3 (80-100) fl MCH 30.5 (26-34) pg MCHC 32.7 (32-36) g/dl RDW 12.7 (11.5-14.5) % Plt Count 337 (150-375) k/mm3 MPV 8.4 (7.4-10.4) fl Immature Gran % (Auto) 0.9 H (0-0.5) % Neut % (Auto) 85.9 H (45.5-73.1) % Lymph % (Auto) 7.6 L (18.3-44.2) % [place] % (Auto) 4.8 (2.6-8.5) % Eos % (Auto) 0.4 (0-4.4) % Baso % (Auto) 0.4 (0.2-1.2) % Lymph # (Auto) 1.42 (0.9-3.2) K/mm3 [place] # (Auto) 0.9 H (0.1-0.6) K/mm3 Eos # (Auto) 0.1 (0-0.3) K/mm3 Baso # (Auto) 0.1 (0.0-0.1) K/mm3 Abs Immat Gran (auto) 0.17 H (0.00-0.031) K/mm3 Absolute Neuts (auto) 16.0 H (1.3-6.7) K/mm3 Absolute Nucleated RBC 0.000 (0.0-0.012) K/mm3 Nucleated RBC % 0.0 (0.0-0.2) % PT 13.5 (11.1-14.7) Seconds INR 1.0 APTT 23.9 (22.3-36.8) Seconds Sodium (137-145) mmol/L Potassium (3.4-5.0) mmol/L Chloride (98-107) mmol/L Carbon Dioxide (22-30) mmol/L Anion Gap (4-12) mmol/L BUN (7-17) mg/dL Creatinine (0.7-1.0) mg/dL Estim Creat Clear Calc Estimated GFR (59 - ) Glucose (65-110) mg/dL Lactic Acid 3.5 H (0.7-2.0) mmol/L Calcium (8.4-10.2) mg/dL Magnesium (1.6-2.3) mg/dL Total Bilirubin (0.2-1.3) mg/dL AST (14-36) U/L ALT (6-35) U/L Alkaline Phosphatase (38-126) U/L Total Creatine Kinase (30-135) U/L Troponin I < 0.012 C-Reactive Protein (<1.0) mg/dL NT-Pro-B Natriuret Pep (19.9-100) pg/mL Total Protein (6.3-8.2) g/dL Albumin (3.5-5.1) g/dL Lipase (23-300) U/L TSH (Reflex) (0.465-4.68) uIU/mL Free T4 (0.78-2.19) ng/dL Total T3 (0.82-1.58) NG/ML Serum HCG, Qual Urine Color (Yellow) Urine Appearance (Clear) Urine pH (5.0-9.0) Ur Specific [place] (1.001-1.035) Urine Protein (Negative) mg/dL Urine Glucose (UA) (Negative) mg/dL Urine Ketones (Negative) mg/dL Ur Blood (Man) (Negative) Urine Nitrate (Negative) Urine Bilirubin (Negative) Urine Urobilinogen (<2.0) mg/dL Add Ur Microanalysis Leukocyte Esterase Rfl (Negative) IAIN/UL Urine RBC (0-2) /hpf Urine WBC (0-3) /hpf Ur Squamous Epith Cells (Few) /hpf Urine Bacteria /hpf Urine Casts Nasal MRSA (PCR) (NOT DETECTE) Urine Opiates Screen (Negative) Urine Methadone Screen (Negative) Ur Barbiturates Screen (Negative) Ur Phencyclidine Scrn (Negative) Ur Amphetamine Screen (Negative) U Benzodiazepines Scrn (Negative) Urine Cocaine Screen (Negative) U Cannabinoids Screen (Negative) Ethyl Alcohol (<10) mg/dL Influenza A (RT-PCR) (Negative) Influenza B (RT-PCR) (Negative) RSV (RT-PCR) (Negative) SARS-CoV-2 RNA (RT-PCR) (Negative) Blood Type Antibody Screen ABG Data ABG results: 07/11/25 23:16 VBG pH 7.302 VBG pCO2 35.8 L VBG pO2 87.6 H VBG HCO3 17.3 L O2 Delivery Device Room air O2 Liters/Min Not Reportable FiO2 21 ECG Data EKG #1: Attestation: I personally reviewed and interpreted this ECG as follows: ECG completion date: 07/11/25 ECG completion time: 21:21 Interpretation: Rate of 71, rhythm is sinus rhythm, axis is normal, borderline less than [address]-elevation in leads 2 3 and AVF, T-wave inversion present in lead aVL and V2, no ST depressions, QTC interval is 445 milliseconds, QRS duration is 89 milliseconds, MS interval 172 milliseconds. Critical Care Time Critical Care Time Critical Care Time: Yes Indication: Hypotension, sepsis, renal failure, emboli versus aortic dissection. Time Type: Intermittent Initial evaluation, discuss w/ involved parties, attempting to gather old records: 15 minutes Documenting medical record: 15 minutes Review of results (EKG's, labs, imaging): 15 minutes Serial repeat bedside evaluation: 30 minutes Discussing case with multiple memebers of the care team and consultants: 5 minutes Total Critical Care Time: 80 Discharge Plan Discharge Clinical Impression: Hypotension, Sepsis, Chest pain, Syncope, Elevated lactic acid level, ELIEZER (acute kidney injury), Acute dehydration, Thrombus of aorta, Infarction of kidney, Aortic dissection Patient Disposition: Acute Care Hospital Condition: Critical Patient Language: Mozambican Prescriptions: No Action biotin 1 mg capsule 1 mg PO DAILY venlafaxine 150 mg capsule,extended release 24hr PO lorazepam 0.5 mg tablet PO lidocaine 5 % adhesive patch,medicated topical amoxicillin-pot clavulanate 875-125 mg tablet 1 tablet PO BID Qty: 14 0RF fluoxetine 40 mg capsule PO melatonin 10 mg capsule 10 mg PO QHS albuterol sulfate 90 mcg/actuation HFA aerosol inhaler 2 puff inhalation Q4H PRN (Reason: shortness of breath or wheezing) Qty: 8.5 1RF meloxicam 15 mg tablet 15 mg PO DAILY Qty: 90 1RF cyclobenzaprine 5 mg tablet 5 mg PO TID PRN (Reason: muscle spasm) Qty: 20 0RF pravastatin 10 mg tablet 10 mg PO DAILY Qty: 90 0RF lisinopril 10 mg tablet 10 mg PO DAILY Qty: 90 1RF metoprolol succinate 25 mg tablet extended release 24 hr 25 mg PO DAILY Qty: 90 1RF diphenhydramine HCl 25 mg Tablet 25 mg PO DAILY Follow-up/Referrals: Jaylen Solis MD [Primary Care Provider, Internal Medicine] Time of Disposition: 00:47
[2025-07-11 21:38] LABS: Hematocrit 35.8 % (37.0-47.0); Hemoglobin 11.8 g/dL (12.0-15.0); Immature Granulocyte Percent A 1.3 % (0-0.5); Lymphocytes Absolute Auto 2.72 K/mm3 (0.9-3.2); Mean Corpuscular HGB Conc 33.0 g/dl (32-36); Mean Corpuscular Hemoglobin 30.6 pg (26-34); Mean Corpuscular Volume 93.0 fl (80-100); Nucleated Red Blood Cells Absolute Auto 0.000 K/mm3 (0.0-0.012); Nucleated Red Blood Cells Perc 0.0 % (0.0-0.2); Platelet Count Result 355 k/mm3 (150-375); Red Blood Count 3.85 M/mm3 (4.2-5.4); White Blood Count 10.3 K/mm3 (4.5-10.0)
[2025-07-11 21:45] LABS: SPREG INTERNAL CONTROL Positive; Serum Qual hCG Negative
[2025-07-11 21:53] LABS: Alanine Aminotransferase 35 U/L (6-35); Albumin Level 4.3 g/dL (3.5-5.1); Alkaline Phosphatase 68 U/L (38-126); Anion Gap 16 mmol/L (4-12); Aspartate Amino Transferase 35 U/L (14-36); Bilirubin,Total 0.2 mg/dL (0.2-1.3); Blood Urea Nitrogen 22 mg/dL (7-17); CRP < 0.5 mg/dL (<1.0); Calcium 9.5 mg/dL (8.4-10.2); Carbon Dioxide 17 mmol/L (22-30); Chloride 102 mmol/L (98-107); Creatine Kinase 46 U/L (30-135); Estimated Glomerular Filt Rate 26; Glucose 148 mg/dL (65-110); INR 1.0; Lipase 197 U/L (23-300); Magnesium 1.8 mg/dL (1.6-2.3); Potassium 4.2 mmol/L (3.4-5.0); Prothrombin Time 13.2 Seconds (11.1-14.7); Sodium 135 mmol/L (137-145); Total Protein 6.7 g/dL (6.3-8.2)
[2025-07-11 21:54] LABS: Partial Thromboplastin Time 23.5 Seconds (22.3-36.8)
--- NOTE | 2025-07-11 22:01 | ECG_ITS ---
Test Date: 2025-07-11 21:21:34 Measurements Intervals [place] Rate: 71 P: 59 CO: 172 QRS: 70 QRSD: 89 T: 80 QT: 422 QTc: 461 Interpretive Statements SINUS RHYTHM BORDERLINE ST-T WAVE ABNORMALITY- HIGH LATERAL LEADS BASELINE ARTIFACT- I, II, III, AVR, AVL, AVF, V3-V6 BORDERLINE ECG No previous ECG available for comparison Electronically Signed On 07-12-2025 07:51:03 MANAGER NURSING by Rusty Dorman D.O.
--- OUTSIDE RECORDS SUMMARY | 2025-07-11 22:02 | XMS_ITS | Clinical Summary ---
Author Organization [facility] Address [address] [place] [address] Care Team Providers Care Electronic System Engineer Name Role Phone Mckenna Hernández MD Primary Care Provider Source Comments [facility],non-owned Affiliates and Associated Physician Practices is amultiple site organization consisting of ambulatory clinics and hospital sitesin [place], [place], [place] and [place]. This disclosure is being madepursuant to the Care Everywhere program and may not contain all information available regarding this patient. 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 Not on file Not on file Last Filed Vital Signs Vital Sign Reading Time Taken Comments Blood Pressure 110/78 04/10/2017 8:57 AM CDT Pulse 67 04/10/2017 8:57 AM CDT Temperature 36 C (96.8 F) 04/10/2017 8:57 AM CDT Respiratory Rate 18 04/10/2017 8:57 AM CDT Oxygen Saturation 97% 06/24/2014 1:37 PM [employer]AGS [employer]ER Inhaled Oxygen Concentration - - Weight 62.6 kg (138 lb) 04/10/2017 8:57 AM CDT Height 165.1 cm (5' 5) 04/10/2017 8:57 AM CDT Body Mass Index [...] of 3 - 19+ 3-dose series) 1985 PAP SMEAR 1987 Cervical Cancer Screening 01/17/1996 PAP with HPV 01/17/1996 PNEUMOCOCCAL VACCINE 50+ (1 of 1 - PCV) 01/17/2016 ZOSTER VACCINE (1 of 2) 01/17/2016 MAMMOGRAM 11/25/2016 11/25/2014 DEPRESSION SCREENING 08/05/2024 COVID-19 VACCINE (1 - 2024- season) 2025 INFLUENZA VACCINE (#1) 2025 9, 08/12/2018, 09/05/2016, Additional history exists HEPATITIS C [...] 12:12 PM CDT) Hepatitis C Antibody Non-react [facility] Comment: Hepatitis C Antibody screen indicates no [...] 12:12 PM CDT 11/23/2015 12:28 PM CDT us [facility] Alec DAVIS LAB - CHEMISTRY ORDERABLES Fi nal Result [facility] [address] [phone] * MAMMO BILAT SCREENING (11/25/2014 9:56 AM [...] is recommended. These services are provided at [facility] by Dr. Marcela Montenegro or Carol Muñoz RN [facility] . This report was electronically signed [...] is recommended. These services are provided at [facility] by Dr. Marcela Montenegro or Carol Muñoz RN [facility] . This report was electronically signed by AISHA STILES M.D. on11/29/2014 9:30 AM . Historical Provider MAMMO ORDERABLES Final Re sult from Last 3 Months or Most Recently Relevant to Health Maintenance Insurance Care Teams Electronic System Engineer Relationship Specialty Start Date End Date Mckenna Hernández MD PCP - General 08/04/19
[2025-07-11 22:03] LABS: Troponin I < 0.012 ng/mL (0.000-0.034)
[2025-07-11 22:09] VITALS: TEMP 37
[2025-07-11 22:10] VITALS: BP 72/54; PULSE 82; RESP 22; O2SAT 100
[2025-07-11] MEDS: SODIUM CHLORIDE 0.9% IV 1,000 ML 999 ML IV CONT ×2 (22:11→22:13)
[2025-07-11] MEDS: ONDANSETRON INJ 4 MG/2 ML VIAL IV PUSH (22:15)
[2025-07-11] MEDS: Please enter patient height and weight for medication dosing 1 EACH XX (22:16)
[2025-07-11 22:17] VITALS: BP 100/69; PULSE 85; RESP 16
[2025-07-11 22:24] LABS: Thyroid Stimulating Hormone Reflex 5.080 uIU/mL (0.465-4.68)
[2025-07-11] MEDS: CEFEPIME 2 GM in SODIUM CHLORIDE 0.9% IV 50 ML 100 ML IVPB (23:21)
[2025-07-11 23:24] VITALS: BP 103/72; PULSE 86; RESP 16; TEMP 36.7; O2SAT 96
[2025-07-11 23:42] LABS: Add Urine Microscopic? YES; Appearance Urine Clear (Clear); Glucose Urine UA Negative (Negative); Leukocyte Esterase Ur Negative LEU/UL (Negative); Need Manual Microscopic Reviewed; Nitrate Urine Negative (Negative); Specific Grav Ur > 1.045 (1.001-1.035)
[2025-07-11 23:44] LABS: Fractional Inspired Oxygen 21 %; HCO3 VBG 17.3 mEq/l (24.0-30.0); NT Pro B Type Natriuretic Pept 83 pg/mL (19.9-100); PCO2 VBG 35.8 mmHg (42.0-48.0); PO2 VBG 87.6 mmHg (35.0-45.0); pH VBG 7.302 (7.300-7.400)
[2025-07-11 23:54] LABS: Cannabinoid Screen Urine Positive (Negative)
[2025-07-12 00:02] LABS: Influenza A QL RT-PCR Negative (Negative); Influenza B QL RT-PCR Negative (Negative); RSV RNA, RT-PCR Negative (Negative); SARS-CoV-2 RNA PCR Negative (Negative)
[2025-07-12] MEDS: VANCOMYCIN 1,250 MG/NS 250 ML 1,250 MG/250 ML BAG 166.67 MG IVPB (00:10)
[2025-07-12] MEDS: SODIUM CHLORIDE 0.9% IV 1,000 ML 150 ML IV CONT (00:12)
[2025-07-12 00:21] VITALS: BP 113/101
[2025-07-12 00:37] LABS: MRSA (PCR) NOT DETECTED (NOT DETECTE)
[2025-07-12 00:43] LABS: Free T4 Free Thyroxine Reflex 1.20 ng/dL (0.78-2.19)
[2025-07-12] MEDS: HYDROmorphone HCL INJ (*CRX) 1 MG/ML SYR 0.5 MG IV PUSH ×2 (00:46→01:15)
[2025-07-12] MEDS: SODIUM CHLORIDE 0.9% IV 500 ML 999 ML IV CONT (00:49)
[2025-07-12 01:04] LABS: Hematocrit 36.1 % (37.0-47.0); Hemoglobin 11.8 g/dL (12.0-15.0); Immature Granulocyte Percent A 0.9 % (0-0.5); Lymphocytes Absolute Auto 1.42 K/mm3 (0.9-3.2); Mean Corpuscular HGB Conc 32.7 g/dl (32-36); Mean Corpuscular Hemoglobin 30.5 pg (26-34); Mean Corpuscular Volume 93.3 fl (80-100); Nucleated Red Blood Cells Absolute Auto 0.000 K/mm3 (0.0-0.012); Nucleated Red Blood Cells Perc 0.0 % (0.0-0.2); Platelet Count Result 337 k/mm3 (150-375); Red Blood Count 3.87 M/mm3 (4.2-5.4); White Blood Count 18.6 K/mm3 (4.5-10.0)
[2025-07-12] MEDS: Please enter patient height and weight for medication dosing 1 EACH XX (01:11)
[2025-07-12 01:17] VITALS: BP 140/81; PULSE 91; RESP 20; O2SAT 99
[2025-07-12 01:24] LABS: Total Triiodothyronine (T3) 1.36 NG/ML (0.82-1.58)
[2025-07-12 01:27] LABS: Troponin I < 0.012 ng/mL (0.000-0.034)
[2025-07-12 01:29] LABS: INR 1.0; Prothrombin Time 13.5 Seconds (11.1-14.7)
[2025-07-12 01:30] LABS: Partial Thromboplastin Time 23.9 Seconds (22.3-36.8)
== END 2025-07-12 01:35 | disposition short-term general hospital (02) ==
PROVIDERS: Emergency Provider Student in an Organized Health Care Education/Training Program; PCP Emergency Medicine
DX: A41.9 Sepsis, unspecified organism (principal); I71.00 Dissection of unspecified site of aorta; I74.10 Embolism and thrombosis of unspecified parts of aorta; N28.0 Ischemia and infarction of kidney; N17.9 Acute kidney failure, unspecified; I95.9 Hypotension, unspecified; E86.0 Dehydration; R74.02 Elevation of levels of lactic acid dehydrogenase [LDH]; Z20.822 Contact with and (suspected) exposure to COVID-19; I10 Essential (primary) hypertension; J45.909 Unspecified asthma, uncomplicated; E78.5 Hyperlipidemia, unspecified; K58.9 Irritable bowel syndrome, unspecified; M81.0 Age-related osteoporosis without current pathological fracture; M19.90 Unspecified osteoarthritis, unspecified site; Q79.60 Ehlers-Danlos syndrome, unspecified; Z87.891 Personal history of nicotine dependence; Z79.899 Other long term (current) drug therapy; R94.31 Abnormal electrocardiogram [ECG] [EKG]
CPT/HCPCS: 36415; 70450; 71275; 72125; 72128; 72131; 74174; 80053; 80307; 81001; 82077; 82550; 82803; 83605; 83690; 83735; 83880; 84439; 84443; 84480; 84484; 84703; 85025; 85610; 85730; 86140; 86850; 86900; 86901; 87637; 87641; 93005; 96361; 96365; 96367; 96375; 96376; 99291; J0692; J1171; J2405; J3373; J7030; J7040; Q9967